=== PATIENT | female | born 1935 | race Caucasian/White ===

== ENCOUNTER 2018-12-03 08:56 | Inpatient (IN) ==
--- NOTE | 2018-12-03 09:09 | EKG Report ---
Test Performed on : 12/03/2018 09:06:29 AM Test Reason : rectal bleed/hx of IA Blood Pressure : / mmHG Vent. Rate : 065 BPM Atrial Rate : 065 BPM P-R Int : 124 ms QRS Dur : 074 ms QT Int : 394 ms P-R-T Axes : 060 030 031 degrees QTc Int : 409 ms Sinus rhythm. with premature atrial complexes. in a pattern of bigeminy. Otherwise normal ECG When compared with ECG of 18-NOV-2018 13:35, premature atrial complexes. are now present Unconfirmed Result
--- NOTE | 2018-12-03 09:35 | PROVIDER DOCUMENTATION ---
HPI-Abdominal Pain/GI Problem - General Chief Complaint: Rectal Bleeding Stated Complaint: RECTAL BLEEDING Time Seen by Provider: 12/03/18 09:16 Source: patient Allergies/Adverse Reactions: Patient Allergies Allergy/AdvReac Type Severity Reaction Status Date / Time meperidine HCl * AdvReac Unknown Verified 12/03/18 10:04 [From [facility]] Home Medications: Home Medication List Medication Instructions Recorded Confirmed Last Taken Type Zolpidem [Ambien] 10 mg PO PRN PRN 11/01/15 12/03/18 12/01/18 History Aspirin 81 mg PO DAILY 11/18/18 12/03/18 12/02/18 History Atorvastatin Calcium 80 mg PO DAILY 11/18/18 12/03/18 12/02/18 History Docusate Sodium [Colace] 100 mg PO BID PRN PRN 11/18/18 12/03/18 12/02/18 History LISINOpril [Prinivil] 5 mg PO DAILY 11/18/18 12/03/18 12/02/18 History Levocetirizine Dihydrochloride 5 mg PO PRN PRN 11/18/18 12/03/18 11/26/18 History Melatonin 10 mg PO PRN PRN 11/18/18 12/03/18 12/02/18 History Omeprazole 40 mg PO DAILY 11/18/18 12/03/18 12/02/18 History Pioglitazone HCl 15 mg PO DAILY 11/18/18 12/03/18 12/02/18 History Polyethylene Glycol 3350 [Miralax] 17 gm PO PRN PRN 11/18/18 12/03/18 12/02/18 History Psyllium Husk [Metamucil] 1 each PO PRN PRN 11/18/18 12/03/18 12/02/18 History Ticagrelor [Brilinta] 90 mg PO BID 11/18/18 12/03/18 12/02/18 History Hydrocodone/APAP 10 mg/325 mg 1 ea PO Q4H PRN PRN #30 tab 11/24/18 12/03/18 Rx [Ollie-10] Carvedilol 6 mg PO BID 12/03/18 12/03/18 12/02/18 History - History of Present Illness-ABD Nature of Presenting Problems: Patient is an 83 yowf who complains of rectal bleeding since last night. Reports 1 episode approximately every hour. States, "I would feel like I had to have a bowel movement, then I would go fill up the toilet with blood." States blood was bright red with clots. Denies abdominal pain, does c/o rectal pain. Recent diagnosis of rectal cancer last week. Had radiation consult yesterday but has not begun treatment yet. Quality of Pain: reports: none Onset/Duration: reports: last night Timing: reports: still present Review of Systems - Adult - REVIEW OF SYSTEMS - ADULT Constitutional: denies: fever Eyes: reports: no symptoms reported Ears, Nose, Mouth & Throat: reports: no symptoms reported Cardiovascular: reports: no symptoms reported Respiratory: reports: no symptoms reported Gastrointestinal: reports: see HPI, rectal bleeding. denies: abdominal pain Genitourinary: reports: no symptoms reported Musculoskeletal: reports: no symptoms reported Integumentary: reports: no symptoms reported Neurological: reports: no symptoms reported Psychiatric: reports: no symptoms reported Endocrine: reports: no symptoms reported Hematologic/Lymphatic: reports: no symptoms reported Allergic/Immunologic: reports: no symptoms reported All Other Systems: Reviewed and Negative Past History - Adult - PAST MEDICAL HISTORY-ADULT Review of Records: reports: Old Records Reviewed, Nursing Assessment Review, Medications Reviewed, Social history reviewed & non-contributory. Major Childhood Illnesses: reports: denies history Cardiovascular: reports: hyperlipidemia Respiratory: reports: denies history Gastrointestinal: reports: denies history Obstetrical/Gynecological: reports: denies history Genitourinary: reports: denies history Musculoskeletal: reports: denies history Neurological: reports: denies history Endocrine/Immune: reports: Diabetes Other Conditions: reports: denies history - PRIOR SURGERIES/PROCEDURES Surgical/Procedure History: reports: cholecystectomy - IMMUNIZATION STATUS Childhood Immunizations: See Nurse Assessment Flu Vaccine: See Nurse Assessment - FAMILY HISTORY Family History: reviewed, not pertinent - SOCIAL HISTORY Smoking: non-smoker Physical Exam-General - PHYSICAL EXAM-ADULT Initial Vital Signs Reviewed: Yes - CONSTITUTIONAL General Appearance: alert, no apparent distress. negative: lethargic, slow to respond - EYES Eyes: PERRL/EOMI, pink conjunctivae. negative: sclera injected, scleral icterus , sunken eyes - HEAD, EARS, NOSE, MOUTH & THROAT HENMT: normocephalic/atraumatic, moist mucous membranes - NECK Neck: full range of motion, supple, normal inspection - RESPIRATORY Respiratory: chest non-tender, lungs clear, normal breath sounds, no pleuratic chest pain, no respiratory distress, no accessory muscle use - CARDIOVASCULAR Cardiovascular: normal peripheral pulses, regular rate, rhythm, no edema, no gallop, no murmur - GASTROINTESTINAL (ABDOMEN) Abdominal Exam: normal bowel sounds, non tender, soft, no organomegaly, no pulsatile mass. negative: distended, guarding, rigid, rebound, tenderness, hernia, mass, hepatomegaly, spleenomegaly - GENITOURINARY Rectal Exam: normal rectal tone, hemorrhoids, mass, tenderness (Rectum extremely tender on exam and could barely tolerate rectal exam. Gross bright red blood noted.) - MUSCULOSKELETAL Back Exam: normal inspection Extremity: normal range of motion, non-tender, normal gait, normal inspection Peripheral Pulses: radial (R): 3+, radial (L): 3+ - SKIN Integumentary: normal color, warm/dry. negative: cyanosis, diaphoresis, jaundice, mottled, pallor - NEUROLOGIC Neurologic: grossly normal, no motor/sensory deficits - PSYCHIATRIC Psych/Mental Status: normal mood/affect, normal thought content, normal thought process, oriented x 3 Progress - PLAN OF CARE/RESULTS Progress/Plan/Lab Results: Vital Signs - 8 hr 12/03/18 09:00 Temperature 97.9 F Pulse Rate 75 Respiratory Rate 18 Blood Pressure 114/98 O2 Sat by Pulse Oximetry 100 Orders Category Date Time Status Saline Loc DIRECTED Care 12/03/18 09:04 Active NPO Diet 12/03/18 09:04 Active AMYLASE [CHEM] Stat Lab 12/03/18 09:04 Uncollected CBC WITH ELECTRONIC DIFF [HEME] Stat Lab 12/03/18 09:04 Uncollected COMPREHENSIVE METABOLIC PANEL [CHEM] Stat Lab 12/03/18 09:04 Uncollected LIPASE [CHEM] Stat Lab 12/03/18 09:04 Uncollected OCCULT BLOOD SCREENING [STOOL] Stat Lab 12/03/18 09:30 Uncollected TYPE & SCREEN [BBK] Stat Lab 12/03/18 09:04 Uncollected URINALYSIS W/POSS RFLX CULT [URINALYSIS] Stat Lab 12/03/18 09:04 Uncollected EKG [EKG] Stat Ther 12/03/18 09:[address] Roberts also saw pt and is in agreement with orders. Attempted to call Dr. Hinds's office and office is closed today. Dr. Roberts recommends calling Dr. Bass since hs is patient's pcp. Dr. Taveras power plant operations manager and paged at [phone]. Dr. Taveras at bedside and will assume patient's care at this time. Result Diagrams: 12/03/18 14:09 12/03/18 09:40 - CONSULTS/PCP/HOSPITALIST Notification #1 *Consult/PCP/Hospitalist*: Dr. Fabian Taveras Time Discussed: 13:00 Consult Disposition: Will see in ED Departure - Departure Date of Disposition Decision: 12/03/18 Time of Disposition Decision: 14:00 DIAGNOSIS: Rectal bleeding Anemia Qualifiers: Anemia type: unspecified type Qualified Code(s): D64.9 - Anemia, unspecified Disposition: ADMITTED INPATIENT 09 Certified Medical Emergency: Emergent Condition: Stable - Critical Care Note This patient required my direct & personal management of CC.: No Attestation - Physician/ BJ Attestation Patient care was provided by Advanced Practice Provider:: Yes Advanced Practice Provider:: Meet Davila Advanced Practice Provider documentation review:: The Mid-level provider documentation, treatment plan and medical decision making was reviewed by the physician who agrees with all treatment and medical decision making by the MLP. The physician spent face to face time with patient:: Yes (Dr. Roberts) Advanced Practice Provider documentation review:: Supervising physician onsite and consulted in the evaluation and care of this patient. The physician did have a face to face encounter with the patient.
[2018-12-03 09:57] LABS: BASO# 0.05 X1000 (0.0-0.2); BASO% 0.7 % (0.0-0.8); EOS# 0.17 X1000 (0.0-0.7); EOS% 2.2 % (0.0-10.0); HEMATOCRIT 37.1 % (37.0-47.0); HEMOGLOBIN 11.9 g/dL (12.0-16.0); LYMPH# 1.86 X1000 (1.2-3.4); LYMPH% 24.5 % (20.5-51.1); MCH 30.7 PG (27-31); MCHC 32.1 g/dL (33-37); MCV 95.9 FL (81-99); MONO# 0.88 X1000 (0.11-0.59); MONO% 11.6 % (1.7-9.3); NEUT# 4.63 X1000 (1.4-6.5); PLT 278 X1000 (130-400); RBC 3.87 XMIL (4.2-5.4); RDW 13.9 % (11.5-14.5); WBC 7.59 X1000 (4.8-10.8)
[2018-12-03 10:24] LABS: ALB/GLOB RATIO 1.2; ALBUMIN 3.8 g/dL (3.5-5.0); CALCIUM 9.3 mg/dL (8.8-10.2); CREATININE 0.9 mg/dL (0.5-0.9); POTASSIUM 3.9 mmol/L (3.5-5.1); TOTAL BILIRUBIN 0.67 mg/dL (0.20-1.00)
[2018-12-03 11:02] LABS: URINE SOURCE CLEAN CATCH
[2018-12-03 11:15] LABS: BILIRUBIN URINE NEGATIVE (NEGATIVE); BLOOD URINE LARGE (NEGATIVE); COLOR BROWN; GLUCOSE URINE NEGATIVE (NEGATIVE); KETONE URINE NEGATIVE (NEGATIVE); LEUKOCYTES URINE LARGE (NEGATIVE); NITRITE URINE NEGATIVE (NEGATIVE); PH URINE 6.5; PROTEIN URINE 100 mg/dL (NEGATIVE); SP GRAVITY URINE 1.003; TURBIDITY URINE TURBID (CLEAR); UR EPITHELIAL CELLS <10 /HPF (<10); URINE BACTERIA NEGATIVE /HPF; URINE RBC TNTC /HPF (<10); URINE WBC TNTC /HPF (<10); UROBILINOGEN URINE NORMAL (NORMAL)
[2018-12-03 11:21] LABS: URINE CASTS NONE SEEN
[2018-12-03] MEDS ORDERED: ROCEPHIN 1 GM in NS 50 ML IV ONE (11:23)
--- NOTE | 2018-12-03 11:30 | ED EKG INTERP ---
This chart was entered by Jolly Ling Scribe, acting as scribe for Kee Roberts MD. EKG Interpretation - EKG Time of EKG reading by physician:: 09:06 EKG Read and Signed by:: Kee Roberts EKG Interpretation (*Must complete 3 of following elements*): Normal Rate: 65 Rhythm: sinus rhythm with pac in a pattern of bigeminy [place]: normal QRS: normal [place] Interval: normal ST Wave: normal Attestation - Physician/ BJ Attestation Patient care was provided by Advanced Practice Provider:: Yes Advanced Practice Provider documentation review:: The Mid-level provider documentation, treatment plan and medical decision making was reviewed by the physician who agrees with all treatment and medical decision making by the MLP. The physician spent face to face time with patient:: No Advanced Practice Provider documentation review:: Supervising physician onsite and consulted in the evaluation and care of this patient. The physician did not have a face to face encounter with the patient. This chart was documented by the indicated scribe, (Jolly Ling Scribe) and accurately reflects the services I performed and decisions made by me, Kee Roberts MD, as attested by the provider's signature.
[2018-12-03] MEDS ORDERED: NS 1,000 ML IV ONE (14:16)
[2018-12-03 14:23] LABS: HEMATOCRIT 32.5 % (37.0-47.0); HEMOGLOBIN 10.4 g/dL (12.0-16.0)
[2018-12-03] MEDS ORDERED: NS 1,000 ML IV SCH (15:47)
[2018-12-03] MEDS ORDERED: SODIUM CHLORIDE 0.9% INJ PRN (15:47)
[2018-12-03] MEDS ORDERED: TYLENOL PO PRN (15:47)
[2018-12-03] MEDS ORDERED: PHENERGAN IV PRN (15:47)
[2018-12-03] MEDS ORDERED: AMBIEN PO PRN (15:47)
[2018-12-03] MEDS ORDERED: NORCO-10 PO PRN (15:47)
[2018-12-03] MEDS ORDERED: MELATONIN PO PRN (15:47)
[2018-12-03] MEDS: LEVAQUIN PO SCH (17:48)
--- NOTE | 2018-12-03 20:15 | Diag Imaging Result Doc PS360 ---
EXAM: CT ABDOMEN/PELVIS W/WO CONTRAS INDICATION: rectal bleeding with squamous cell cancer of rectum TECHNIQUE: This exam was performed using automated exposure control, adjustment of mA or kV according to patient size, and/or use of iterative reconstruction technique. COMPARISON: None. FINDINGS: There is mild focal scarring at the anterior left lung base. There is evidence of prior cholecystectomy. The liver is unremarkable with no sign of metastatic disease. The spleen and pancreas are unremarkable. The right kidney has a lobulated contour and there is milder lobulation of the cortex of the left kidney. This probably represents persistent lobulations versus cortical scarring. There are a few nonobstructing intrarenal stones on the right. There is no hydronephrosis. The urinary bladder is unremarkable. The reproductive tract is unremarkable as imaged. There is irregular ill-defined thickening involving the rectum and anal verge, which would be consistent with the history of carcinoma. There is no evidence of bowel obstruction. There is fairly mild diverticulosis coli. There is an incidental small duodenal diverticulum. The remainder of the GI tract is essentially unremarkable, otherwise. No significant abdominal or pelvic lymphadenopathy is appreciated. There is advanced multilevel degenerative arthropathy throughout the lumbar spine and at both hips. There is nothing that would suggest local bony metastatic disease. IMPRESSION: 1.Ill-defined irregular thickening involving the distal rectum and anal verge that is suspicious for neoplasm given the patient's history. 2.No CT evidence of distant metastatic disease to the abdomen or pelvis. 3.Other incidental/nonacute findings detailed above. Electronically signed by Rivera Rahman 12/03/2018 8:12 PM
--- NOTE | 2018-12-03 20:22 | HISTORY AND PHYSICAL ---
HISTORY OF PRESENT ILLNESS: Mrs. Nohemy Carbone is an 83-year-old, lady, who is followed as an outpatient by Dr. Presley Bass. 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 She presented to the ER with a 36 hour history of rectal bleeding. She had been passing bright red blood and frequent clots per rectum. She has a lot of rectal tenderness and discomfort. Dr. 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 She has been scheduled for a PET scan as an outpatient on Thursday with plans to proceed with radiation therapy as an outpatient. She denies any crampy abdominal pain, nausea, vomiting, or diarrhea. She does have a longstanding history of ischemic heart disease. She had angioplasty and stenting of an unknown vessel on 06/20/2018. She had a drug-eluting stent and has been on Brilinta. She was off Brilinta for 5 days prior to the biopsy, but is back taking Brilinta 90 mg b.i.d. She denies any chest pain, palpitations, or anginal equivalents. She does have a longstanding history of type 2 noninsulin-dependent diabetes mellitus. She has been following a low carbohydrate diet and taking Actos 15 mg daily. She denies any polyuria, polydipsia or episodes of symptomatic hypoglycemia. PAST MEDICAL HISTORY: Essential hypertension, ischemic heart disease. Type 2 noninsulin- dependent diabetes mellitus, well controlled on oral medications. Mixed hyperlipidemia. Squamous cell carcinoma of the rectum. PAST SURGICAL HISTORY: Cholecystectomy. ALLERGIES: Meperidine. FAMILY HISTORY: Noncontributory. SOCIAL HISTORY: She is a former smoker. She does not consume alcoholic beverages. MEDICATIONS: Lisinopril 5 mg daily. Pioglitazone 15 mg daily, atorvastatin 80 mg at bedtime. Omeprazole 40 mg daily, aspirin 81 mg daily. Brilinta at 90 mg b.i.d., Coreg 3.125 mg b.i.d., Ambien 10 mg at bedtime p.r.n. insomnia. MiraLAX 1 scoopful in 8 ounces of water daily, Colace 100 mg b.i.d. REVIEW OF SYSTEMS: General: She denies any recent weight gain or weight loss. HEENT: She wears glasses. CV: No chest pain, palpitations, or anginal equivalents. Pulmonary: No shortness of breath, PND, orthopnea. GI: No reflux, dysphagia, melena, hematochezia, change in bowel habits or rectal bleeding. Endocrine: No polyuria, no polydipsia. No cold or heat intolerance. Skin: No easy bruisability. : No leakage of urine with coughing or laughing. Skin: No easy bruisability. Neuro: No migraines or seizures. Psychiatric: No history of depression. PHYSICAL EXAMINATION: GENERAL: This is a well-developed, well-nourished, 83-year-old, lady in no apparent distress. VITAL SIGNS: She is afebrile. Pulse 61, respirations 15, BP 135/66 lying down, 105/55 standing. HEENT: Fundi with arteriolar wall thickening. Pupils equal, round, reactive to light. Extraocular eye movements intact. TMs without bullae. NECK: Supple. No masses, JVD or bruits. CV: Regular rate and rhythm with a soft systolic ejection murmur at the left sternal margin. LUNGS: Clear. ABDOMEN: Soft, nontender, with active bowel sounds. No hepatosplenomegaly. No abdominal bruits. EXTREMITIES: Without edema. SKIN: No palpable purpura. GENITOURINARY AND RECTAL: Exams deferred. NEUROLOGIC: Nonfocal. ASSESSMENT AND PLAN: 1. Acute blood loss anemia secondary to lower gastrointestinal bleed. The patient does have a known squamous cell carcinoma of the anus. Her hemoglobin and hematocrit have dropped from 12.6 and 39.7 on 11/18/2018 to 10.4 and 32.5 today. We are going to monitor her blood counts every 6 hours and will transfuse as indicated. I am going ahead and check a CT scan of the abdomen and pelvis with and without contrast in order to help stage the tumor. We will transfuse her as indicated. I would like her hematocrit to be consistently greater than 30 in the setting of ischemic heart disease. If we are unable to stop the bleeding, I have spoken to Dr. Perla Barrett, who felt that we could do local radiation. She did state that it would take several treatments to stop the bleeding. We will continue MiraLAX and Colace to soften her bowel movements. 2. Ischemic heart disease. She had drug-eluting stents placed on 06/20/2018. She cannot have any elective procedures until 12/18/2018. Given active bleeding, I believe that it is dangerous for her to continue the Brilinta. I understand that there is a risk for stopping the Brilinta prior to 6 months in the setting of a drug-eluting stent as it may increase the risk for cardiac event. Because of the orthostasis, I will continue the Coreg, but hold the lisinopril. We will begin normal saline at 75 mL/hour and will continue fluids. 3. Type 2 noninsulin-dependent diabetes mellitus. We will place her on pattern sugars, Humulin R sliding scale, and her regular home dosage of Actos. Given her comorbid conditions and clinical presentation, I believe that it is reasonable to admit her to [facility] for volume resuscitation and monitoring of her blood counts. At this point in time, I anticipate that she will be in the hospital for at least 1 midnight and I will therefore place her in outpatient status with observation services. We will continue to hold aspirin, Brilinta, Lovenox or heparin in the face of active bleeding. cc: Brittany Taveras MD
[2018-12-03] MEDS ORDERED: COREG PO SCH (21:00)
[2018-12-03] MEDS: COLACE PO PRN (21:40)
[2018-12-03] MEDS: MIRALAX PO PRN (21:40)
[2018-12-03 23:10] LABS: HEMOGLOBIN 10.8 g/dL (12.0-16.0)
[2018-12-04] MEDS: CORTROSYN IV ONE ×2 (07:40→08:11)
[2018-12-04] MEDS: PRILOSEC PO SCH (07:41)
[2018-12-04] MEDS: LIPITOR PO SCH (08:24)
[2018-12-04] MEDS: ACTOS PO SCH (08:24)
[2018-12-04] MEDS: LEVAQUIN PO SCH (08:24)
[2018-12-04 08:27] LABS: HEMATOCRIT 35.2 % (37.0-47.0); HEMOGLOBIN 11.4 g/dL (12.0-16.0)
--- NOTE | 2018-12-04 08:27 | Diag Imaging Result Doc PS360 ---
EXAM: CHEST-PORTABLE INDICATION: hypertension TECHNIQUE: One view COMPARISON: 03/24/2018 FINDINGS: Mild fibrotic change at the left costophrenic angle is stable. The lungs are grossly clear, otherwise. There is no discrete pleural fluid collection or pneumothorax. The cardiomediastinal silhouette and central vasculature are grossly unremarkable. IMPRESSION: Stable chest. No definite acute pathology. Electronically signed by Rivera Rahman 12/04/2018 8:25 AM
[2018-12-04] MEDS ORDERED: NS 1,000 ML IV ONE (08:52)
--- NOTE | 2018-12-04 12:06 | PROGRESS NOTE ---
DATE: 12/04/2018 SUBJECTIVE: Ms. Nohemy Carbone was recently diagnosed with squamous cell carcinoma of the rectum and anal verge. Staging has not been performed. She had been having persistent rectal bleeding and passing large clots. She was orthostatic on admission. Throughout the night, the bleeding has tapered off. Her blood counts are stable this morning at 11.4 and 35.2. In spite of fluid resuscitation, she is still orthostatic. A Cortrosyn stimulation test is pending. She denies any chest pain, palpitations or anginal equivalents. A CT scan of the abdomen and pelvis with and without contrast demonstrated no intracranial metastases or adenopathy. OBJECTIVE: Vital signs: Temperature is 97.9, pulse 85, respirations 20, blood pressure 134/49 sitting 94/48 standing. Cardiovascular: Regular rate and rhythm. Soft systolic ejection murmur at the left sternal margin. Lungs: Clear. Abdomen: Soft, nontender, with active bowel sounds. ASSESSMENT AND PLAN: 1. Lower gastrointestinal bleed. She does have a squamous cell carcinoma of the rectum and anus. Some bleeding is expected. We will continue to hold the Brilinta and follow blood counts. If the bleeding intensifies or worsens, we will try to initiate local radiation. 2. Orthostatic hypotension. I am going to continue to hold the lisinopril and Coreg. I will bolus her with 1 L of normal saline wide open and increase the fluids to 100 mL per hour. 3. Given her persistent orthostatic hypotension, with her comorbid conditions, I believe that further fluid resuscitation and management of the volume depletion is indicated. I anticipate that she will be in the hospital for at least 2 midnights, and I will therefore place her in inpatient status. I am concerned that she is a high fall risk given her orthostatic hypotension. Because of the active bleeding, we will continue to hold anticoagulation with Brilinta, Lovenox or heparin. cc: Brittany Taveras MD
[2018-12-04] MEDS: NS 1,000 ML IV SCH (12:50)
[2018-12-04 13:30] LABS: HEMATOCRIT 32.1 % (37.0-47.0); HEMOGLOBIN 10.2 g/dL (12.0-16.0)
[2018-12-04 17:00] LABS: HEMATOCRIT 32.6 % (37.0-47.0); HEMOGLOBIN 10.4 g/dL (12.0-16.0)
[2018-12-04] MEDS: MIRALAX PO PRN (21:17)
[2018-12-04] MEDS: COLACE PO PRN (21:17)
[2018-12-05] MEDS: PRILOSEC PO SCH (06:27)
[2018-12-05] MEDS: NS 1,000 ML IV SCH (06:41)
[2018-12-05] MEDS: LIPITOR PO SCH (08:30)
[2018-12-05] MEDS: ACTOS PO SCH (08:30)
[2018-12-05] MEDS: LEVAQUIN PO SCH (08:31)
[2018-12-05 10:28] VITALS: BP 140/42
[2018-12-05] MEDS ORDERED: COLACE PO SCH (21:00)
== END 2018-12-05 12:45 | disposition home or self-care (01) | DRG 812 ==
LOC: ED 08:56 → 4N 08:56
PROVIDERS: ADMIT Internal Medicine; ATTEND Internal Medicine
CPT/HCPCS: 71010; 71045; 74178; 80053; 81001; 82150; 82270; 82533; 82948; 83690; 85014; 85018; 85025; 86850; 86900; 86901; 87077; 87088; 87186; 93005; 99284; A9270; J0696; J0834; J7030; Q9967; XXXXX

== ENCOUNTER 2019-01-03 15:52 | Inpatient (IN) ==
[2019-01-03] MEDS ORDERED: NS 1,000 ML IV ONE (16:29)
[2019-01-03] MEDS ORDERED: SODIUM CHLORIDE 0.9% INJ ONE ×2 (16:29→20:20)
[2019-01-03] MEDS ORDERED: PHENERGAN IV ONE (16:29)
--- NOTE | 2019-01-03 17:12 | Diag Imaging Result Doc PS360 ---
EXAM: CHEST-2 VIEWS HISTORY: weakness TECHNIQUE: Chest two views COMPARISON: 12/04/2018 FINDINGS: The lungs are well expanded. The heart is not enlarged. There is a right jugular portacatheter on the current exam. The tip lies noted the junction of superior vena cava and right atrium. No pneumothorax. The vessels are not distended. There are no infiltrates. No pleural effusions. IMPRESSION: No acute abnormality. Electronically signed by Osman Roberts 01/03/2019 5:10 PM
[2019-01-03 18:31] LABS: EOS# 0.01 X1000 (0.0-0.7); EOS% 0.4 % (0.0-10.0); HEMATOCRIT 26.7 % (37.0-47.0); HEMOGLOBIN 8.7 g/dL (12.0-16.0); LYMPH# 0.13 X1000 (1.2-3.4); MCH 30.3 PG (27-31); MCHC 32.6 g/dL (33-37); MONO# 0.32 X1000 (0.11-0.59); MONO% 12.2 % (1.7-9.3); MPV 12.1 FL (7.4-10.4); NEUT# 2.16 X1000 (1.4-6.5); NEUT% 82.4 % (42.2-75.2); RBC 2.87 XMIL (4.2-5.4); RDW 13.1 % (11.5-14.5); WBC 2.62 X1000 (4.8-10.8)
[2019-01-03 18:33] LABS: PLT 36 X1000 (130-400)
[2019-01-03 18:43] LABS: AGAP 10; ALB/GLOB RATIO 1.2; ALBUMIN 2.8 g/dL (3.5-5.0); ALKALINE PHOSPHATASE 65 U/L (32-104); BUN 39 mg/dL (8-22); CHLORIDE 97 mmol/L (98-107); CK PROFILE 73 U/L (24-173); COSMO 282; CREATININE 0.8 mg/dL (0.5-0.9); ESTIMATED GFR > 60; GLUCOSE 174 mg/dL (70-104); GOT 22 U/L (10-30); GPT 17 U/L (10-36); POTASSIUM 4.5 mmol/L (3.5-5.1); SODIUM 134 mmol/L (136-145); TCO2 27 mmol/L (25-35); TOTAL BILIRUBIN 0.52 mg/dL (0.20-1.00); TOTAL PROTEIN 5.1 g/dL (6.3-8.3)
[2019-01-03 19:12] LABS: BANDS 4 % (0-1); LARGE PLATELETS OCCASIONAL; MONO 8 % (1-9); SEGS 88 % (42-75)
[2019-01-03 19:25] LABS: URINE SOURCE CATH
[2019-01-03 19:40] LABS: BILIRUBIN URINE NEGATIVE (NEGATIVE); BLOOD URINE TRACE (NEGATIVE); COLOR YELLOW; GLUCOSE URINE NEGATIVE (NEGATIVE); KETONE URINE NEGATIVE (NEGATIVE); LEUKOCYTES URINE NEGATIVE (NEGATIVE); NITRITE URINE NEGATIVE (NEGATIVE); PROTEIN URINE 50 mg/dL (NEGATIVE); SP GRAVITY URINE 1.019; TURBIDITY URINE CLEAR (CLEAR); UROBILINOGEN URINE NORMAL (NORMAL)
[2019-01-03 19:41] LABS: UR EPITHELIAL CELLS <10 /HPF (<10); URINE BACTERIA NEGATIVE /HPF; URINE RBC <10 /HPF (<10); URINE WBC <10 /HPF (<10)
[2019-01-03] MEDS ORDERED: IMODIUM PO PRN (20:14)
[2019-01-03] MEDS ORDERED: AMBIEN PO PRN (20:14)
[2019-01-03] MEDS ORDERED: SODIUM CHLORIDE 0.9% INJ PRN (20:15)
[2019-01-03] MEDS ORDERED: ZOFRAN IV PRN (20:15)
[2019-01-03] MEDS ORDERED: PHENERGAN IV PRN (20:15)
[2019-01-03] MEDS ORDERED: PROTONIX IV ONE (20:20)
[2019-01-03] MEDS ORDERED: NS 1,000 ML IV SCH (20:30)
[2019-01-03] MEDS ORDERED: SODIUM CHLORIDE 0.9% INJ SCH (20:30)
[2019-01-03] MEDS ORDERED: COREG PO SCH ×2 (21:00)
[2019-01-03] MEDS: DECADRON PO SCH (21:36)
[2019-01-03] MEDS: NORCO-10 PO PRN (21:45)
[2019-01-03] MEDS: XANAX PO PRN (21:46)
--- NOTE | 2019-01-03 22:10 | HISTORY AND PHYSICAL ---
PRIMARY CARE PROVIDER: Dr. Presley Bass CHIEF COMPLAINT: Nausea, vomiting, and weakness. HISTORY OF PRESENT ILLNESS: Ms. Carbone is an 83-year-old female who is followed outpatient by Dr. Presley Bass. She has a past medical history of ischemic heart disease, hypertension, diabetes mellitus type 2, hyperlipidemia, and squamous cell carcinoma of the rectum, status post chemo and radiation. She was recently admitted to the hospital on 12/03/2018 for rectal bleeding. States that since that time where she was discharged and went home, she has not felt well. She has had intermittent diarrhea, increasing weakness, and says she has noted some blood in her stool intermittently. She complains of pain related to ulcerations in her mouth. She states that her oral intake has been poor related to this. Initial workup showed her to be anemic as well as fluid volume depleted. She will be admitted to the medical floor for further evaluation and treatment. PAST MEDICAL HISTORY: See HPI. PREVIOUS SURGICAL HISTORY: Cholecystectomy and right-sided Port-A-Cath placement. SOCIAL HISTORY: She is a former smoker. Does not drink or use illicit drugs. FAMILY HISTORY: Positive for hypertension and coronary artery disease in first- degree relatives. ALLERGIES: Meperidine and Demerol. HOME MEDICATIONS: 1. Ambien 10 mg p.o. at bedtime p.r.n. 2. [place] 10 p.o. q four hours p.r.n. 3. Carvedilol 3.125 mg p.o. b.i.d. 4. Alprazolam 0.25 mg p.o. p.r.n. 5. Dexamethasone 4 mg p.o. b.i.d. 6. Marinol 5 mg p.o. b.i.d. 7. Loperamide 2 mg p.o. p.r.n. 8. Phenergan 12.5 mg to 25 mg q four hours p.r.n. 9. 250 tablet p.o. b.i.d. REVIEW OF SYSTEMS: Fourteen point review of systems conducted with the patient. Pertinent positives listed above in the HPI. All other systems reviewed and found to be negative. PHYSICAL EXAMINATION: VITAL SIGNS: Temperature 98.3, pulse 67, respirations 19, blood pressure 115/59, oxygen saturation 95% on room air. GENERAL: Anxious 83-year-old female lying on the ER stretcher. Answers all questions appropriately. She is alert and oriented, in no acute distress. HEENT: Head is atraumatic and normocephalic. Pupils equal, round, reactive to light. Extraocular eye movements intact. Sclerae are anicteric. Conjunctivae pale. Oral mucosa with post pharyngeal ulcerations bilaterally. Lips were dry and cracking. Oral mucosa was overall dry. NECK: Supple. No JVD. No thyromegaly. Trachea is midline. No cervical lymphadenopathy. CARDIAC: S1, S2 appreciated. 1 to 2/6 systolic ejection murmur. No gallops, no rubs. LUNGS: Clear to auscultation bilaterally. No rhonchi, wheezes, or rales. Symmetrical rise and fall with respirations. ABDOMEN: Soft, nondistended, nontender. Bowel sounds present all 4 quadrants, normoactive. No pulsatile mass. No organomegaly. EXTREMITIES: No clubbing or cyanosis. Trace of lower extremity edema, no pitting. 2+ pedal pulses bilaterally. NEUROLOGICAL: Alert and oriented. No focal motor deficits, otherwise nonfocal examination. GENITOURINARY: No bladder distention, otherwise deferred. DIAGNOSTIC DATA: Chest x-ray with no infiltrates. No effusions. LABORATORY DATA: WBC 2.62. ASSESSMENT AND PLAN: 1. Rectal cancer, status post chemo and radiation. Aware. I believe her architectural manager is in [place]. Will defer to primary team. Need for Hematology consultation. 2. Pancytopenia. Continue to monitor patient's hemoglobin and hematocrit. She does not appear to be acutely bleeding at this time, however her counts are low. Will type and screen. Also will monitor platelets. At this time defer to primary team need for platelet transfusion or packed red blood cell transfusion. 3. Fluid volume depletion. As noted above. Gentle fluid rehydration overnight. 4. Hypertension. Continue home medication. 5. Diabetes mellitus. Will place on low-dose sliding scale insulin with finger stick blood sugars before meals and at bedtime. Further recommendations per patient clinical course. Dictated by OSORIO Tanner for Raciel Briscoe MD I have performed a face to face diagnostic evaluation. Labs/ Xrays reviewed. Exam chest- clear, skin- poor turgor A/P- Volume depletion. rectal cancer- Admit , IV fluids, supportive care. Dr. Briscoe cc: OSORIO Tanner MD Russell T. Barr, MD [facility]
[2019-01-03] MEDS: HUMALOG SUBQ SCH (23:25)
[2019-01-03] MEDS: MARINOL PO SCH (23:29)
[2019-01-03] MEDS: MYCOSTATIN SUSP PO SCH (23:30)
[2019-01-03] MEDS: NEUTRA-PHOS PO SCH (23:30)
[2019-01-03 23:57] LABS: AGAP 9; BUN 35 mg/dL (8-22); CALCIUM 8.1 mg/dL (8.8-10.2); CHLORIDE 99 mmol/L (98-107); COSMO 279; CREATININE 0.8 mg/dL (0.5-0.9); ESTIMATED GFR > 60; GLUCOSE 142 mg/dL (70-104); MAGNESIUM 2.1 mg/dL (1.5-2.7); POTASSIUM 4.3 mmol/L (3.5-5.1); SODIUM 134 mmol/L (136-145); TCO2 26 mmol/L (25-35)
[2019-01-04 00:01] LABS: EOS# 0.01 X1000 (0.0-0.7); EOS% 0.4 % (0.0-10.0); HEMATOCRIT 26.5 % (37.0-47.0); HEMOGLOBIN 8.7 g/dL (12.0-16.0); LYMPH# 0.13 X1000 (1.2-3.4); LYMPH% 5.5 % (20.5-51.1); MCH 30.7 PG (27-31); MCHC 32.8 g/dL (33-37); MCV 93.6 FL (81-99); MONO# 0.32 X1000 (0.11-0.59); MONO% 13.6 % (1.7-9.3); MPV 11.9 FL (7.4-10.4); NEUT% 80.5 % (42.2-75.2); RBC 2.83 XMIL (4.2-5.4); RDW 13.3 % (11.5-14.5); WBC 2.36 X1000 (4.8-10.8)
[2019-01-04 00:03] LABS: PLT 33 X1000 (130-400)
--- NOTE | 2019-01-04 00:48 | PROVIDER DOCUMENTATION ---
This chart was entered by Ellen Manzo Scribe, acting as scribe for Pee Medina MD. HPI-General Adult - General Chief Complaint: Weakness Stated Complaint: WEAKNESS Time Seen by Provider: 01/03/19 16:13 Source: patient Allergies/Adverse Reactions: Patient Allergies Allergy/AdvReac Type Severity Reaction Status Date / Time meperidine HCl * AdvReac Unknown Verified 12/03/18 10:04 [From Demerol] morphine AdvReac Unknown Verified 01/03/19 16:18 Home Medications: Home Medication List Medication Instructions Recorded Confirmed Last Taken Type Zolpidem [Ambien] 10 mg PO PRN PRN 11/01/15 01/03/19 12/01/18 History Hydrocodone/APAP 10 mg/325 mg 1 ea PO Q4H PRN PRN #30 tab 11/24/18 01/03/19 12/01/18 Rx [[place]-10] Carvedilol 3.125 mg PO BID #60 tab 12/05/18 01/03/19 Unknown Rx Alprazolam 0.25 mg PO PRN PRN 01/03/19 01/03/19 Unknown History Dexamethasone [Decadron] 4 mg PO BID 01/03/19 01/03/19 Unknown History Dronabinol [Marinol] 5 mg PO BID 01/03/19 01/03/19 Unknown History Loperamide [Imodium] 2 mg PO PRN PRN 01/03/19 01/03/19 Unknown History Promethazine [Phenergan] 12.5 - 25 mg TOP Q4H PRN PRN 01/03/19 01/03/19 Unknown History Sod Phos Di, Armstrong/K Phos Armstrong 250 mg PO BID 01/03/19 01/03/19 Unknown History [Phospha 250 Neutral Tablet] - History of Present Illness -Gen Adult Nature of Presenting Problems: 83 yo F presents to ED with weakness, nausea, vomiting diarrhea x1 week was admitted for acute blood loss and GI bleed. Rectal cancer, radiation this week and last week, had chemos 4 days 2 weeks ago. Pt reports it is hard to swallow and eat, due to multiple ulcers in her mouth. Location of Pain/Injury: reports: mouth, generalized Pain Radiation: reports: no radiation Quality of Pain: reports: none Severity: reports: mild Onset/Duration: reports: unsure Review of Systems - Adult - REVIEW OF SYSTEMS - ADULT Constitutional: reports: no symptoms reported. denies: chills, fever, night sweats Eyes: reports: no symptoms reported Ears, Nose, Mouth & Throat: reports: no symptoms reported Cardiovascular: reports: no symptoms reported Respiratory: reports: no symptoms reported Gastrointestinal: reports: diarrhea, difficulty swallowing, nausea, vomiting. denies: abdominal pain, hematemesis, constipation Genitourinary: reports: no symptoms reported Musculoskeletal: reports: see HPI, other (weakness) Integumentary: reports: no symptoms reported Neurological: reports: no symptoms reported Psychiatric: reports: no symptoms reported Endocrine: reports: no symptoms reported Hematologic/Lymphatic: reports: no symptoms reported Allergic/Immunologic: reports: no symptoms reported All Other Systems: Reviewed and Negative Past History - Adult - PAST MEDICAL HISTORY-ADULT Review of Records: reports: Nursing Assessment Review, Medications Reviewed Major Childhood Illnesses: reports: denies history Cardiovascular: reports: hyperlipidemia, [place] Respiratory: reports: denies history Gastrointestinal: reports: denies history Obstetrical/Gynecological: reports: denies history Genitourinary: reports: denies history Musculoskeletal: reports: denies history Neurological: reports: denies history Endocrine/Immune: reports: Diabetes Other Conditions: reports: denies history - PRIOR SURGERIES/PROCEDURES Surgical/Procedure History: reports: cholecystectomy - IMMUNIZATION STATUS Childhood Immunizations: See Nurse Assessment Flu Vaccine: See Nurse Assessment - FAMILY HISTORY Family History: reviewed, not pertinent - SOCIAL HISTORY Smoking: non-smoker Physical Exam-General - PHYSICAL EXAM-ADULT Initial Vital Signs Reviewed: Yes - CONSTITUTIONAL General Appearance: appears well, alert, no apparent distress - EYES Eyes: PERRL/EOMI, pink conjunctivae - HEAD, EARS, NOSE, MOUTH & THROAT HENMT: normocephalic/atraumatic, moist mucous membranes, other (bilateral post pharynx ulcers) - NECK Neck: non-tender, full range of motion, supple - RESPIRATORY Respiratory: chest non-tender, lungs clear, normal breath sounds, no pleuratic chest pain, no respiratory distress, no accessory muscle use - CARDIOVASCULAR Cardiovascular: normal peripheral pulses, regular rate, rhythm, no edema, no gallop, no JVD, no murmur - GASTROINTESTINAL (ABDOMEN) Abdominal Exam: normal bowel sounds, non tender, soft - LYMPHATIC Lymphatic: no adenopathy - MUSCULOSKELETAL Back Exam: normal inspection, no CVA tenderness, no vertebral tenderness Extremity: normal range of motion, non-tender, normal gait, normal inspection - SKIN Integumentary: normal color, normal turgor, warm/dry - NEUROLOGIC Neurologic: grossly normal - PSYCHIATRIC Psych/Mental Status: normal mood/affect, normal thought content, normal thought process, oriented x 3 Progress - PLAN OF CARE/RESULTS Progress/Plan/Lab Results: Vital Signs - 8 hr 01/03/19 16:10 Temperature 98.3 F Pulse Rate 83 Respiratory Rate 20 Blood Pressure 124/48 O2 Sat by Pulse Oximetry 94 L Laboratory Results - last 24 hr 01/03/19 16:21 POC Glucose 199 H Orders Category Date Time Status Saline Loc NOW Care 01/03/19 16:28 Active CHEST-2 VIEWS [RAD] Stat Exams 01/03/19 16:29 Ordered CBC WITH ELECTRONIC DIFF [HEME] Stat Lab 01/03/19 16:28 Uncollected CK PROFILE [SP CHEM] Stat Lab 01/03/19 16:29 Uncollected COMPREHENSIVE METABOLIC PANEL [CHEM] Stat Lab 01/03/19 16:29 Uncollected TROPONIN T Stat Lab 01/03/19 16:29 Uncollected URINALYSIS W/POSS RFLX CULT [URINALYSIS] Stat Lab 01/03/19 16:29 Uncollected 0.9% Sodium Chloride Inj [Ns] 1,000 ml Med 01/03/19 16:29 Active IV 999 mls/hr Promethazine [Phenergan] Med 01/03/19 16:29 Discontinued 12.5 mg IV NOW ONE Sodium Chloride 0.9% Med 01/03/19 16:29 Discontinued 10 ml INJ NOW ONE EKG [EKG] Stat Ther 01/03/19 16:29 Ordered A/P: Generalized weakness. Intractable nasuea and vomiting. S/P chemo and rad for SCC of rectum. will admit. Result Diagrams: 01/03/19 17:54 01/03/19 17:54 - EKG 1 Time of EKG reading by physician:: 16:35 EKG Read and Signed by:: Pee Medina EKG Interpretation (*Must complete 3 of following elements*): Abnormal Rate: 68 Rhythm: sinus [place]: normal QRS: PVC's NM Interval: normal ST Wave: normal - CONSULTS/PCP/HOSPITALIST Notification #1 *Consult/PCP/Hospitalist*: Dr Briscoe Time Discussed: 19:31 Consult Disposition: Admit Departure - Departure Date of Disposition Decision: 01/03/19 Time of Disposition Decision: 19:31 DIAGNOSIS: Generalized weakness, Intractable nausea and vomiting Disposition: ADMITTED INPATIENT 09 Certified Medical Emergency: Emergent Condition: Stable Additional Freetext Instructions: We have examined and treated you today on an emergency basis only. This was not a substitute for, or an effort to provide, complete medical care. In most cases, you must let your doctor check you again. Tell your doctor about any new or lasting problems. We cannot recognize and treat all injuries or illnesses in one Emergency Department visit. If you had sp ecial tests, such as X-rays or CT scans, will be reviewed by radiologist and will call you if there are any new suggestions Follow up with primary care provider in 1 to 2 days if no improvement. If you do not have a primary care provider, you need to choose one as soon as possible. Take medicines as prescribed. Monitor for any side effects or adverse events from medications. If any side effect, adverse event or rash develops, or if you suspect any other adverse reaction to the medication, then discontinue the medication immediately and contact clinic /PCP or go to the nearest ER. Narcotic meds / sedative meds instruction - patent advised not to drive, operate any machinery or go into water after taking meds as it may impair mental ability to react to the situation in an appropriate manner. Continue other current medicines. Follow up with PCP within 24-48 hours, or sooner if symptoms worsen or fail to improve. Patient / guardian verbalizes understanding of treatment plan, medication, and side effects and agrees with treatment plan. Patient leaves ER in stable condition and ambulatory state. Return to ER as needed. Discharge instructions reviewed verbally and given to patient in written form. Follow up with primary care provider. Referrals and Follow-Ups: Presley Bass MD [Primary Care Provider] - - Critical Care Note This patient required my direct & personal management of CC.: No Attestation - Physician/ BJ Attestation Patient care was provided by Advanced Practice Provider:: No The physician spent face to face time with patient:: Yes Advanced Practice Provider documentation review:: Supervising physician onsite and consulted in the evaluation and care of this patient. The physician did have a face to face encounter with the patient. This chart was documented by the indicated scribe, (Ellen Manzo Scribe) and accurately reflects the services I performed and decisions made by me, Pee Medina MD, as attested by the provider's signature.
[2019-01-04] MEDS: HUMALOG SUBQ SCH (06:15)
--- NOTE | 2019-01-04 07:40 | EKG Report ---
Test Performed on : 01/03/2019 4:35:00 PM Test Reason : weakness, Hx of [place] Blood Pressure : / mmHG Vent. Rate : 068 BPM Atrial Rate : 068 BPM P-R Int : 114 ms QRS Dur : 072 ms QT Int : 404 ms P-R-T Axes : 026 028 015 degrees QTc Int : 429 ms Sinus rhythm. with premature supraventricular complexes. Cannot rule out Anterior infarct , age undetermined Abnormal ECG When compared with ECG of 03-DEC-2018 09:06, (Unconfirmed) No significant change was found Unconfirmed Result
[2019-01-04] MEDS ORDERED: PROTONIX IV SCH (09:00)
[2019-01-04] MEDS: NEUTRA-PHOS PO SCH ×2 (09:49→20:05)
[2019-01-04] MEDS: XANAX PO PRN (09:49)
[2019-01-04] MEDS: MARINOL PO SCH ×2 (09:49→20:05)
[2019-01-04] MEDS: DECADRON PO SCH ×2 (09:49→20:05)
[2019-01-04] MEDS: NORCO-10 PO PRN ×3 (09:49→20:06)
[2019-01-04] MEDS: MYCOSTATIN SUSP PO SCH ×4 (09:50→20:05)
--- NOTE | 2019-01-04 17:12 | HEMO/ONC CONSULTATION ---
DATE: 01/04/2019 ADMITTING PHYSICIAN: Dr. Raciel Briscoe. REQUESTING PHYSICIANS: Dr. Raciel Briscoe. We appreciate this consult. 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 HISTORY OF PRESENT ILLNESS: Ms. Carbone is an 83-year-old female, well known to Dr. Dominguez with a history of anal moderately differentiated squamous cell carcinoma. The patient is currently on 5-FU and mitomycin C with concomitant radiation. The patient has recently had poor oral intake secondary to mucositis and presented to [facility] with intermittent diarrhea, increasing weakness, and intermittent bloody stool. We are consulted as the patient is well known to us. PAST MEDICAL HISTORY: 1. Anal moderately differentiated squamous cell carcinoma. 2. Ischemic heart disease. 3. Hypertension. 4. Diabetes mellitus type 2. 5. Hyperlipidemia. PAST SURGICAL HISTORY: 1. Cholecystectomy. 2. Right Port-A-Cath placement. SOCIAL HISTORY: The patient has a history of smoking cigarettes. She has since quit. She does not use alcohol or illicit drugs. FAMILY HISTORY: Negative for any hematologic or oncologic problems. MEDICATION ON ADMISSION: 1. Ambien. 2. [place]. 3. Carvedilol. 4. Alprazolam. 5. Dexamethasone. 6. Marinol. 7. Loperamide. 8. Phenergan. ALLERGIES: Meperidine. REVIEW OF SYSTEMS: A 14 point review of systems was obtained and is negative except for as mentioned in HPI. PHYSICAL EXAMINATION: General: Ms. Carbone is a pleasant, 83-year-old female lying supine in bed, in no immediate distress. Vital Signs: Temperature 98.0 degrees, blood pressure 152/53, heart rate 64, respirations 18, O2 saturation 99% on room air. HEENT: Normocephalic, atraumatic. Mucous membranes are pale and slightly dry with excoriation to tongue and oral mucosa. Sclerae are anicteric. Extraocular movements intact. Neck: Supple. Lungs: Clear to auscultation bilaterally. Chest expansion is equal bilaterally. CV: S1, S2 is heard. No murmurs, rubs or gallops. Abdomen: Nondistended. Extremities: No clubbing or cyanosis. The patient does have trace bilateral lower extremity edema. Dermatologic: No rashes, bruises, or lesions. Neurologic: The patient is awake, alert, and oriented x3 and has no focal deficit. LABORATORY DATA: Hemoglobin 8.7, hematocrit 26.5, white blood cell count is 2.36, platelets 33,000. Sodium 134, potassium 4.3, chloride 99, CO2 is 26, BUN 35, creatinine is 0.8, glucose 142, calcium is 8.1, magnesium is 2.1. TSH is 0.31. IMAGING STUDIES: Chest x-ray reveals no acute abnormality. ASSESSMENT AND PLAN: 1. 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 The patient is currently status post cycle 1, dose 4 of 5-FU and mitomycin C on 12/23/2018 with concomitant radiation. We are currently holding treatment until the patient's acute illness improves. 2. Pancytopenia. Stable at this time. Would continue to monitor CBC. Would transfuse packed red blood cells if hemoglobin is less than 8.0. Would transfuse platelets if platelet count is less than 20,000 or in the setting of active bleeding. 3. Fluid depletion. The patient remains on IV fluids at this time. 4. Hypertension. Stable at this time on antihypertensive. 5. Diabetes mellitus type 2. Blood glucose is stable at 142. Would continue to monitor. 6. Malnutrition. Would recommend mechanical soft diet at this time with Ensure in between meals. 7. Mucositis. Continue current regimen. Would add MuGard from home. 8. We will follow along with you and make further recommendations pending outcomes. The above reflects the history, exam, assessment, and plan of Dr. Dominguez. Dictated by OSORIO Javier for Albert Dominguez MD cc: OSORIO Javier MD Russell T. Barr, MD
[2019-01-04] MEDS ORDERED: CALMOSEPTINE OINTMENT TOP PRN (18:38)
[2019-01-04] MEDS: AMBIEN PO PRN (20:06)
[2019-01-05 07:52] LABS: HEMATOCRIT 27.7 % (37.0-47.0); HEMOGLOBIN 8.9 g/dL (12.0-16.0); IMM GRAN# 0.03 X1000 (0.0-0.04); LYMPH# 0.21 X1000 (1.2-3.4); LYMPH% 6.9 % (20.5-51.1); MCH 30.5 PG (27-31); MCHC 32.1 g/dL (33-37); MCV 94.9 FL (81-99); MONO# 0.32 X1000 (0.11-0.59); MONO% 10.6 % (1.7-9.3); MPV 12.6 FL (7.4-10.4); NEUT# 2.47 X1000 (1.4-6.5); NEUT% 81.5 % (42.2-75.2); RBC 2.92 XMIL (4.2-5.4); RDW 13.5 % (11.5-14.5); WBC 3.03 X1000 (4.8-10.8)
[2019-01-05 07:55] LABS: PLT 39 X1000 (130-400)
[2019-01-05 07:59] LABS: AGAP 5; ALBUMIN 2.7 g/dL (3.5-5.0); BUN 22 mg/dL (8-22); CALCIUM 8.4 mg/dL (8.8-10.2); CHLORIDE 105 mmol/L (98-107); COSMO 287; CREATININE 0.6 mg/dL (0.5-0.9); ESTIMATED GFR > 60; GLUCOSE 183 mg/dL (70-104); PHOSPHORUS 1.7 mg/dL (2.7-4.5); POTASSIUM 5.1 mmol/L (3.5-5.1); SODIUM 140 mmol/L (136-145); TCO2 30 mmol/L (25-35)
[2019-01-05] MEDS ORDERED: ZOFRAN ODT PO PRN (08:06)
[2019-01-05] MEDS: MARINOL PO SCH ×2 (08:31→20:59)
[2019-01-05] MEDS: DECADRON PO SCH ×2 (08:31→20:59)
[2019-01-05] MEDS: MYCOSTATIN SUSP PO SCH ×4 (08:31→21:00)
[2019-01-05] MEDS: NEUTRA-PHOS PO SCH ×2 (08:31→20:59)
[2019-01-05 09:02] LABS: BANDS 4 % (0-1); LYMPHS 4 % (21-51); MONO 18 % (1-9); SEGS 72 % (42-75)
[2019-01-05 09:03] LABS: HYPOCHROM 1+
[2019-01-05] MEDS: LEVEMIR SUBQ SCH (11:02)
[2019-01-05] MEDS: NORCO-10 PO PRN ×2 (13:58→20:59)
[2019-01-05] MEDS: AMBIEN PO PRN (20:59)
[2019-01-05] MEDS: MBX SOLUTION MT PRN (21:00)
[2019-01-06] MEDS ORDERED: INSULIN PEN NEEDLES ONE (06:11)
[2019-01-06] MEDS: NORCO-10 PO PRN ×4 (08:41→22:35)
[2019-01-06] MEDS: MYCOSTATIN SUSP PO SCH ×2 (08:42→13:17)
[2019-01-06] MEDS: MARINOL PO SCH ×2 (08:42→20:25)
[2019-01-06] MEDS: DECADRON PO SCH ×2 (08:43→20:25)
[2019-01-06] MEDS: NEUTRA-PHOS PO SCH ×2 (08:43→20:25)
[2019-01-06] MEDS: LEVEMIR SUBQ SCH (08:45)
[2019-01-06] MEDS: MBX SOLUTION MT PRN ×3 (14:32→20:31)
[2019-01-06] MEDS ORDERED: DIFLUCAN PO ONE (17:06)
[2019-01-06] MEDS: XYLOCAINE 2% JELLY TOP SCH (20:32)
[2019-01-06] MEDS: AMBIEN PO PRN (22:39)
[2019-01-07] MEDS: NORCO-10 PO PRN ×3 (08:31→21:03)
[2019-01-07] MEDS: MBX SOLUTION MT PRN ×4 (08:32→23:46)
[2019-01-07] MEDS ORDERED: LEVEMIR SUBQ SCH (09:00)
[2019-01-07 09:20] LABS: HEMATOCRIT 34.9 % (37.0-47.0); HEMOGLOBIN 11.5 g/dL (12.0-16.0); IMM GRAN# 0.08 X1000 (0.0-0.04); IMM GRAN% 2.2 % (0.0-0.5); LYMPH# 0.36 X1000 (1.2-3.4); LYMPH% 9.9 % (20.5-51.1); MCH 30.9 PG (27-31); MCV 93.8 FL (81-99); MPV 11.7 FL (7.4-10.4); NEUT# 2.78 X1000 (1.4-6.5); NEUT% 76.9 % (42.2-75.2); PLT 69 X1000 (130-400); RBC 3.72 XMIL (4.2-5.4); RDW 13.9 % (11.5-14.5); WBC 3.62 X1000 (4.8-10.8)
[2019-01-07] MEDS: NEUTRA-PHOS PO SCH ×2 (09:31→21:05)
[2019-01-07] MEDS: MARINOL PO SCH ×2 (09:32→22:02)
[2019-01-07] MEDS: DECADRON PO SCH ×2 (09:32→21:03)
[2019-01-07] MEDS: DIFLUCAN PO SCH (09:32)
[2019-01-07 09:42] LABS: AGAP 10; ALBUMIN 2.9 g/dL (3.5-5.0); BUN 18 mg/dL (8-22); CALCIUM 8.7 mg/dL (8.8-10.2); CHLORIDE 100 mmol/L (98-107); COSMO 280; CREATININE 0.7 mg/dL (0.5-0.9); ESTIMATED GFR > 60; GLUCOSE 175 mg/dL (70-104); PHOSPHORUS 2.3 mg/dL (2.7-4.5); POTASSIUM 4.6 mmol/L (3.5-5.1); SODIUM 137 mmol/L (136-145); TCO2 27 mmol/L (25-35)
[2019-01-07] MEDS: XYLOCAINE 2% JELLY TOP SCH ×3 (13:38→21:47)
[2019-01-07] MEDS: AMBIEN PO PRN (22:03)
[2019-01-07] MEDS: XANAX PO PRN (23:46)
[2019-01-08] MEDS: NORCO-10 PO PRN ×4 (01:21→21:29)
[2019-01-08] MEDS ORDERED: INSULIN PEN NEEDLES ONE (07:20)
[2019-01-08] MEDS: DECADRON PO SCH ×2 (09:08→21:29)
[2019-01-08] MEDS: DIFLUCAN PO SCH (09:08)
[2019-01-08] MEDS: XYLOCAINE 2% JELLY TOP SCH ×3 (09:09→17:34)
[2019-01-08] MEDS: NEUTRA-PHOS PO SCH ×2 (09:09→21:32)
[2019-01-08] MEDS: MARINOL PO SCH ×2 (09:09→21:29)
[2019-01-08] MEDS: LEVEMIR SUBQ SCH (09:09)
[2019-01-08] MEDS: MBX SOLUTION MT PRN ×3 (09:15→21:34)
--- NOTE | 2019-01-08 12:42 | GENERAL SURGERY CONSULTATION ---
DATE: 01/08/2019 REQUESTING PHYSICIAN: Dr. Bass. REASON FOR CONSULTATION: Possible flipped port. HISTORY OF PRESENT ILLNESS: An 84-year-old female who is followed by Dr. Bass, who initially came in with nausea, vomiting. She had a recent port placed. She has been getting chemotherapy for squamous cell carcinoma of the rectum. My partner placed the port within the last month. There was some concern yesterday from the nursing staff, who thought the port might have flipped subcutaneously. They were unable to access it. I was asked to weigh an opinion. Patient is without any complaints. PAST MEDICAL HISTORY: Ischemic heart disease, hypertension, diabetes mellitus type 2, hyperlipidemia, squamous cell carcinoma of the rectum, status post chemo-radiation. PAST SURGICAL HISTORY: Cholecystectomy, right-sided port placement. SOCIAL HISTORY: Former smoker. FAMILY HISTORY: Positive for hypertension, coronary artery disease. ALLERGIES: Meperidine and Demerol. HOME MEDICATIONS: Reviewed. REVIEW OF SYSTEMS: A full 10 point review of systems obtained and negative, unless otherwise as specified in HPI. PHYSICAL EXAMINATION: Vital Signs: Patient is currently afebrile. Vital signs stable. General exam: No acute distress. HEENT: Normocephalic, atraumatic. Pupils equal, round, reactive to light. Mucous membranes moist. Oropharynx benign. Neck: Supple. Trachea midline. Cardiovascular: Regular rate and rhythm. Lungs: Grossly clear. Chest wall with port in place; I cannot feel the access part of the port. Abdomen: Soft, nontender, nondistended. Extremities: Moves all extremities. Neurologic: Grossly intact. Skin: No signs of jaundice. Vascular: All extremities perfused. LABORATORY: None this morning as of yet. ASSESSMENT AND PLAN: An 84-year-old female with possible flipped port. 1. Possible flipped port. At this time, performed an ultrasound at the bedside of the area. I could see what looked like the access knobs for palpation. It looks like it is oriented in the right away. What we will likely need to do is have the nurses try to re-access it. If that is unsuccessful, need to send her down to [facility] on Thursday to see if they can access, to see if there are any kind of occlusions. I appreciate the consult. cc: MD Presley Zepeda MD
[2019-01-08] MEDS: AMBIEN PO PRN (21:31)
[2019-01-09] MEDS: NORCO-10 PO PRN ×5 (00:46→21:38)
[2019-01-09] MEDS: MBX SOLUTION MT PRN ×2 (00:47→21:39)
--- NOTE | 2019-01-09 07:36 | GENERAL SURGERY PROGRESS NOTE ---
DATE: 01/09/2019 Nurses were unable to aspirate blood. We were able to flush in the area. Given this, we will plan on examining the spot under fluoroscopy tomorrow and have radiology see if they can flush it. If it does not seem to work, we will need to have it revised. cc: MD Presley Zepeda MD
[2019-01-09] MEDS: XYLOCAINE 2% JELLY TOP SCH ×3 (09:53→17:42)
[2019-01-09] MEDS: MARINOL PO SCH ×2 (09:54→21:38)
[2019-01-09] MEDS: LEVEMIR SUBQ SCH (09:54)
[2019-01-09] MEDS: DECADRON PO SCH ×2 (09:54→21:38)
[2019-01-09] MEDS: DIFLUCAN PO SCH (09:55)
[2019-01-09] MEDS: NEUTRA-PHOS PO SCH ×2 (09:55→21:39)
--- NOTE | 2019-01-09 12:04 | PROGRESS NOTE ---
DATE: 01/09/2019 SUBJECTIVE: The patient's chart was reviewed. In summary, patient was admitted on 01/03/2019 with intractable nausea, vomiting, and weakness. Full evaluation revealed pancytopenia in the setting of radiation and chemotherapy for rectal cancer and volume depletion. The patient was treated with IV fluids. Oncology was consulted and support was provided. While hospitalized, overall, patient's condition has improved, although not back to baseline. She continues to have considerable weakness. She continues to have difficulty with p.o. intake secondary to mouth and esophageal pain with associated ulcerations. Additionally, patient was found to have a dysfunctional port. This is currently being assessed. She denies fevers, chills, shortness of breath, or chest discomfort. OBJECTIVE: T-max 98.7 degrees, heart rate 66-77, respirations 16-18, blood pressure 137 to 152 over 53 to 72.General: Chronically ill-appearing, no acute distress. Cardiovascular: Regular rate and rhythm with frequent ectopy and no significant murmurs, rubs, or gallops. Pulmonary: Clear to auscultation anteriorly. Abdomen: Soft, nontender, nondistended. Positive bowel sounds. Extremities: Moves all extremities well. No significant clubbing or cyanosis. Patient has 2+ lower extremity edema on the right and trace on the left. Dermatologic: Evaluation reveals no evidence of rash. LABORATORY DATA: None. ASSESSMENT AND PLAN: 1. Rectal cancer. Patient currently is being treated with radiation and chemotherapy. I appreciate Dr. Dominguez's consultation. We will defer further management to his discretion. 2. Pancytopenia. As of last laboratory evaluation, patient demonstrated improvement. This likely was chemotherapy associated. We will continue to follow serial CBCs. 3. Profound weakness. This likely is a consequence of her current treatment. We will continue physical therapy. Placement for rehabilitation is being considered. 4. Dysfunctional port. Dr. Blackwell has been consulted. Ultrasound is scheduled for tomorrow. We will defer further management to his discretion. 5. Asymmetric lower extremity edema. In the setting of rectal cancer, I do feel further evaluation is warranted. We will check a lower extremity venous Doppler. DISPOSITION: At this point, patient continues to require usp care in a hospital setting. We will plan discharge home once appropriate. cc: MD Presley Bhandari MD
[2019-01-09] MEDS: AMBIEN PO PRN (21:38)
[2019-01-10] MEDS: MBX SOLUTION MT PRN ×2 (01:02→08:37)
[2019-01-10] MEDS: NORCO-10 PO PRN ×4 (01:02→12:43)
[2019-01-10] MEDS: DIFLUCAN PO SCH (08:36)
[2019-01-10] MEDS: MARINOL PO SCH (08:36)
[2019-01-10] MEDS: LEVEMIR SUBQ SCH (08:37)
[2019-01-10] MEDS: DECADRON PO SCH (08:39)
[2019-01-10] MEDS: XYLOCAINE 2% JELLY TOP SCH ×2 (08:39→13:12)
[2019-01-10] MEDS: NEUTRA-PHOS PO SCH (08:39)
--- NOTE | 2019-01-10 09:34 | GENERAL SURGERY PROGRESS NOTE ---
DATE: 01/10/2019 SUBJECTIVE: The patient is scheduled to have the port examined under fluoroscopy in the Radiology Department. Hopefully, it is patent. If not needed, consider possible revision and replacement. This was all discussed with the patient. cc: MD Presley Zepeda MD
[2019-01-10 09:59] LABS: BASO# 0.01 X1000 (0.0-0.2); BASO% 0.2 % (0.0-0.8); HEMATOCRIT 37.3 % (37.0-47.0); HEMOGLOBIN 12.2 g/dL (12.0-16.0); IMM GRAN# 0.04 X1000 (0.0-0.04); IMM GRAN% 0.9 % (0.0-0.5); LYMPH# 0.24 X1000 (1.2-3.4); LYMPH% 5.4 % (20.5-51.1); MCHC 32.7 g/dL (33-37); MCV 97.9 FL (81-99); MONO# 0.48 X1000 (0.11-0.59); MONO% 10.7 % (1.7-9.3); MPV 11.4 FL (7.4-10.4); NEUT# 3.71 X1000 (1.4-6.5); NEUT% 82.8 % (42.2-75.2); PLT 125 X1000 (130-400); RBC 3.81 XMIL (4.2-5.4); RDW 14.9 % (11.5-14.5); WBC 4.48 X1000 (4.8-10.8)
[2019-01-10 10:32] LABS: AGAP 8; ALB/GLOB RATIO 1.1; ALBUMIN 3.1 g/dL (3.5-5.0); ALKALINE PHOSPHATASE 77 U/L (32-104); BUN 15 mg/dL (8-22); CALCIUM 8.7 mg/dL (8.8-10.2); CHLORIDE 96 mmol/L (98-107); COSMO 266; CREATININE 0.7 mg/dL (0.5-0.9); ESTIMATED GFR > 60; GLUCOSE 113 mg/dL (70-104); GOT 18 U/L (10-30); GPT 20 U/L (10-36); POTASSIUM 4.2 mmol/L (3.5-5.1); SODIUM 132 mmol/L (136-145); TCO2 28 mmol/L (25-35); TOTAL BILIRUBIN 0.53 mg/dL (0.20-1.00); TOTAL PROTEIN 5.8 g/dL (6.3-8.3)
[2019-01-10 12:01] VITALS: BP 158/65
[2019-01-10] MEDS ORDERED: INSULIN PEN NEEDLES ONE (12:50)
--- NOTE | 2019-01-10 15:43 | Diag Imaging Result Doc PS360 ---
EXAM: PORTAGRAM 01/10/2019 HISTORY: No blood return when port accessed TECHNIQUE: Port injection with rapid sequence filming. 23 images, six mGy, seven seconds fluoroscopy time. COMMENT: Contrast was injected in the previously accessed port. This opacifies the port and catheter with contrast seen entering the right atrium. IMPRESSION: No evidence of occlusion or extravasation. Electronically signed by Michael Arellano 01/10/2019 3:40 PM
--- NOTE | 2019-01-10 22:50 | DISCHARGE SUMMARY ---
ADMISSION DATE: 01/03/2019 DISCHARGE DATE: 01/10/2019 FINAL DIAGNOSES: 1. Generalized weakness and inability to walk. 2. Dehydration. 3. Mucositis of the pharynx and rectal areas secondary to chemotherapy. 4. Pancytopenia secondary to recent chemotherapy. 5. Persistent nausea and vomiting with anorexia. 6. Abnormal glucose tolerance, exacerbated by dexamethasone into drug-induced type 2 diabetes mellitus. 7. Squamous cell carcinoma of the rectum. PRESENT ILLNESS: Ms. Carbone is an 84-year-old woman with a past medical history of ischemic heart disease, hypertension, impaired fasting glucose, hyperlipidemia, and squamous cell carcinoma of the rectum. She had her first chemotherapy treatment approximately 10 days prior to admission with 5-FU and mitomycin C. She has developed significant pain with swallowing felt due to mucositis, and also pain in the rectal area. She has received approximately 10 radiation therapy treatments to the rectum as well. Dr. Dominguez, her oncologist, has assured her that she has a good chance of cure following appropriate therapy. She has had diarrhea with occasional rectal bleeding, which worsened immediately prior to this admission. Her oral intake has been very poor due to pain with swallowing. On the day of admission, she had walked to the bathroom and sat on the commode but was unable to get up and had to call for help. She lives alone. PHYSICAL EXAMINATION: Vital signs were unremarkable. General Appearance: Anxious, elderly female. Alert and oriented. HEENT: No evidence of trauma. Pupils equally reactive to light. Lips were dry and cracking with oral mucosa parched. Neck: Supple with no JVD or adenopathy. Cardiac: Exam was unremarkable. Lungs were clear bilaterally. Abdomen was soft and nontender with no organomegaly. Neurologic: She was alert and oriented. Exam was nonfocal. DATA BASE: Chest x-ray shows no infiltrates. Laboratory: White blood cell count 2600, hemoglobin 8.7, hematocrit 26.7, platelet count 36,000. Chemistry profile: Sodium 134, BUN 39, creatinine 0.8, glucose 174, albumin 2.8. Urinalysis was unremarkable. HOSPITAL COURSE: She has been treated with intravenous fluids for rehydration as well as symptomatic medicines for her mucositis. She was given MBX solution (Magic Mouthwash) 4 times a day along with continuing on her Diflucan. Her dexamethasone caused significant hyperglycemia and required some insulin coverage, which she will continue at home. I reduced the dose to 2 mg twice a day. She has continued on Marinol and loperamide as needed. I do not think she needs any further Nutrophos, carvedilol or Phenergan. With rehydration, her BUN dropped to 15 and creatinine to 0.7. Her albumin improved to 3.1. Her white blood count was nearly up to normal, 4500 at discharge, with a hemoglobin of 12.2, hematocrit of 37.3% and platelet count of 125,000. Her mucositis appeared significantly improved and her swallowing improved as well. She is scheduled for at least 1 additional chemotherapy round on January 17, 2019 and I discussed with her and her daughter the probability that she will again have similar side effects with the second round and that we should be prepared with assisted living facility support and symptomatic medications. She is scheduled to complete her course of radiation therapy before the end of the month and she did attend several sessions while here in the hospital. At the time of discharge, she is swallowing better and maintaining her hydration with oral intake and tolerating a very soft diet well. She is discharged to [facility] assisted living facility. DISCHARGE MEDICATIONS: 1. Fluconazole 100 mg daily. 2. MBX solution 15 mL four times a day as needed. 3. Lidocaine 2% gel topically to the rectal area 3 times a day as needed for pain. 4. Dexamethasone 2 mg twice a day. 5. Levemir 14 units subcutaneously q.a.m. 6. Hydrocodone/APAP 10/325 mg, one q.4h p.r.n. pain. 7. Marinol 5 mg twice a day for appetite. 8. Ambien 10 mg daily at bedtime as needed. 9. Alprazolam 0.25 mg b.i.d. as needed. 10.Loperamide 2 mg every 4 hours as needed for diarrhea. FOLLOWUP: She is to return to my office in 8 to 14 days for transition of care visit. cc: MD Albert Briceño MD
--- NOTE | 2019-01-11 09:33 | Extremity Venous Study ---
PROCEDURE NAME: Venous U/S Right Leg - 01/09/2019 REQUESTING PHYSICIAN: Dr. Moore. EXCAVATOR OPERATOR: Gudelia. INDICATIONS: Swelling. EQUIPMENT: [employer] Vivid E9 ultrasound system with a 9 L-D transducer. TECHNIQUE: Images of the right lower extremity venous system with a comparison shot to the left common femoral vein were obtained in both sagittal and transverse planes. Doppler was used to evaluate veins for spontaneity, phasicity, respiratory excursion, and digital augmentation. RESULTS: Normal venous compression. Normal venous flow. No obvious superficial or deep venous thrombosis noted. cc: MD Adrian Zepeda MD Russell T. Barr, MD
== END 2019-01-10 15:15 | disposition home health service (06) | DRG 640 ==
LOC: SUPCPDRO → ED 15:52 → 3N 15:53 → SUATTDRO 15:53
PROVIDERS: ADMIT Internal Medicine; ATTEND Internal Medicine
CPT/HCPCS: 36598; 51701; 71020; 71046; 80048; 80053; 80069; 81001; 82550; 82948; 83735; 84443; 84484; 85025; 86850; 86900; 86901; 93005; 93971; 97162; 97530; 99285; A9270; C9113; J2550; J7030; J8540; P9612; Q9966; Q9967; S0164; XXXXX

== ENCOUNTER 2019-09-30 00:39 | Inpatient (IN) ==
--- NOTE | 2019-09-21 17:49 | EKG Report ---
Test Performed on : 09/21/2019 5:38:33 PM Test Reason : PAT Blood Pressure : / mmHG Vent. Rate : 071 BPM Atrial Rate : 071 BPM P-R Int : 128 ms QRS Dur : 074 ms QT Int : 368 ms P-R-T Axes : 074 086 052 degrees QTc Int : 399 ms Sinus rhythm. with premature atrial complexes. in a pattern of bigeminy. Nonspecific ST abnormality Abnormal ECG When compared with ECG of 03-JAN-2019 16:35, Questionable change in QRS axis Confirmed by Jennifer GALLEGOS, Nakul ([id number]) on 09/21/2019 5:58:05 PM
[2019-09-21 18:10] LABS: BASO# 0.03 X1000 (0.0-0.2); BASO% 0.4 % (0.0-0.8); EOS# 0.12 X1000 (0.0-0.7); EOS% 1.6 % (0.0-10.0); HEMATOCRIT 40.9 % (37.0-47.0); HEMOGLOBIN 13.2 g/dL (12.0-16.0); LYMPH# 3.01 X1000 (1.2-3.4); LYMPH% 39.2 % (20.5-51.1); MCH 31.8 PG (27-31); MCHC 32.3 g/dL (33-37); MCV 98.6 FL (81-99); MONO# 0.68 X1000 (0.11-0.59); MONO% 8.9 % (1.7-9.3); MPV 11.5 FL (7.4-10.4); NEUT# 3.84 X1000 (1.4-6.5); NEUT% 49.9 % (42.2-75.2); PLT 188 X1000 (130-400); RBC 4.15 XMIL (4.2-5.4); RDW 13.7 % (11.5-14.5); WBC 7.68 X1000 (4.8-10.8)
[2019-09-21 18:15] LABS: INR 1.35; PROTIME 16.9 Seconds (11.0-16.0)
[2019-09-21 18:16] LABS: PTT 33.3 Seconds (22.3-41.8)
[2019-09-21 18:26] LABS: HEMOGLOBIN A1C 5.6 % (4.8-6.0)
[2019-09-21 18:33] LABS: ALBUMIN 3.8 g/dL (3.5-5.0); CALCIUM 9.2 mg/dL (8.8-10.2); CREATININE 0.9 mg/dL (0.5-0.9)
[2019-09-21 21:53] LABS: URINE SOURCE CLEAN CATCH
[2019-09-21 21:59] LABS: BILIRUBIN URINE NEGATIVE (NEGATIVE); BLOOD URINE SMALL (NEGATIVE); COLOR YELLOW; GLUCOSE URINE NEGATIVE (NEGATIVE); KETONE URINE NEGATIVE (NEGATIVE); LEUKOCYTES URINE LARGE (NEGATIVE); NITRITE URINE NEGATIVE (NEGATIVE); PH URINE 5.5; PROTEIN URINE TRACE mg/dL (NEGATIVE); SP GRAVITY URINE 1.025; TURBIDITY URINE CLEAR (CLEAR); UROBILINOGEN URINE NORMAL (NORMAL)
[2019-09-21 22:00] LABS: UR EPITHELIAL CELLS <10 /HPF (<10); URINE BACTERIA 3+ /HPF; URINE RBC <10 /HPF (<10); URINE WBC TNTC /HPF (<10)
[2019-09-30] MEDS ORDERED: DURAMORPH ONE (07:13)
[2019-09-30] MEDS ORDERED: MARCAINE 0.25% PF ONE (07:13)
[2019-09-30] MEDS ORDERED: TORADOL ONE (07:13)
[2019-09-30] MEDS ORDERED: SODIUM CHLORIDE 0.9% ONE (07:14)
[2019-09-30] MEDS ORDERED: CYKLOKAPRON 1,000 MG/NS 1,000 MG/100 ML IVPB ONE (07:14)
[2019-09-30] MEDS ORDERED: EXPAREL 1.3% ONE (07:14)
[2019-09-30] MEDS ORDERED: REGLAN ONE (07:16)
[2019-09-30] MEDS ORDERED: LYRICA ONE (07:16)
[2019-09-30] MEDS ORDERED: COLACE ONE (07:16)
[2019-09-30] MEDS ORDERED: PEPCID ONE (07:16)
[2019-09-30] MEDS ORDERED: CELEBREX ONE (07:17)
[2019-09-30] MEDS ORDERED: KEFZOL 1 GM/D5W 1 GM/50 ML IVPB ONE (07:17)
[2019-09-30] MEDS ORDERED: LR 1,000 ML ONE (07:17)
[2019-09-30] MEDS ORDERED: COREG ONE (07:32)
[2019-09-30] MEDS ORDERED: DIPRIVAN 1% ONE (07:46)
[2019-09-30] MEDS ORDERED: FENTANYL ONE (07:47)
[2019-09-30] MEDS ORDERED: NORCURON ONE (07:48)
[2019-09-30] MEDS ORDERED: ZOFRAN ONE (07:48)
[2019-09-30] MEDS ORDERED: SODIUM CHLORIDE 0.9% 10 ML ONE ×2 (07:48→07:52)
[2019-09-30] MEDS ORDERED: QUELICIN (DOSE) ONE (07:48)
[2019-09-30] MEDS ORDERED: XYLOCAINE-MPF 2% ONE (07:48)
[2019-09-30] MEDS ORDERED: EPHEDRINE ONE (07:52)
[2019-09-30] MEDS ORDERED: OFIRMEV 1000 MG/ISOTONIC SOLN 1,000 MG/100 ML BOTTLE ONE (10:15)
[2019-09-30] MEDS ORDERED: ROBINUL ONE (10:19)
[2019-09-30 11:12] LABS: URINE SOURCE CATH
[2019-09-30 11:20] LABS: BILIRUBIN URINE NEGATIVE (NEGATIVE); BLOOD URINE TRACE (NEGATIVE); COLOR YELLOW; GLUCOSE URINE NEGATIVE (NEGATIVE); KETONE URINE NEGATIVE (NEGATIVE); LEUKOCYTES URINE NEGATIVE (NEGATIVE); NITRITE URINE NEGATIVE (NEGATIVE); PH URINE 5.5; PROTEIN URINE NEGATIVE (NEGATIVE); SP GRAVITY URINE 1.012; TURBIDITY URINE CLEAR (CLEAR); UROBILINOGEN URINE NORMAL (NORMAL)
[2019-09-30 11:22] LABS: UR EPITHELIAL CELLS <10 /HPF (<10); URINE BACTERIA NEGATIVE /HPF; URINE RBC <10 /HPF (<10); URINE WBC <10 /HPF (<10)
[2019-09-30] MEDS ORDERED: DECADRON ONE (11:43)
[2019-09-30] MEDS ORDERED: VANCOMYCIN 1 GM/NS 1 GM/250 ML IVPB IV ONE (12:30)
[2019-09-30] MEDS ORDERED: ZOFRAN PO PRN (12:30)
[2019-09-30] MEDS ORDERED: ZOFRAN IV PRN (12:30)
[2019-09-30] MEDS ORDERED: OXY IR PO PRN ×2 (12:30)
[2019-09-30] MEDS ORDERED: MORPHINE IV PRN (12:30)
[2019-09-30] MEDS ORDERED: MILK OF MAGNESIA PO PRN (12:30)
[2019-09-30] MEDS ORDERED: KEFZOL 2 GM/D5W 2 GM/50 ML IVPB IV SCH (12:30)
[2019-09-30] MEDS: OXY IR ONE ×2 (13:14→21:48)
--- NOTE | 2019-09-30 13:31 | Diag Imaging Result Doc PS360 ---
EXAM: XRAY HIP UNILATERAL LT - 09/30/2019 HISTORY: Post Op TECHNIQUE: Portable left hip two views COMPARISON: None. FINDINGS: There are postsurgical changes of recent total hip prosthesis placement. Alignment appears to be satisfactory. There are no complications identified. IMPRESSION: Satisfactory postoperative exam. Electronically signed by Neto Oglesby 09/30/2019 1:29 PM
[2019-09-30] MEDS: MYLICON PO ONE ×2 (13:56→21:48)
[2019-09-30] MEDS ORDERED: NS 1,000 ML IV SCH (14:30)
[2019-09-30] MEDS ORDERED: CYKLOKAPRON 1,000 MG in NS 100 ML IV ONE (15:40)
[2019-09-30] MEDS: TYLENOL PO SCH ×2 (18:04→21:49)
[2019-09-30] MEDS: ULTRAM PO SCH ×2 (18:04→21:49)
[2019-09-30] MEDS: KEFZOL 1 GM/D5W 1 GM/50 ML IVPB IV SCH (18:05)
--- NOTE | 2019-09-30 20:02 | CONSULTATION ---
DATE OF CONSULTATION: 09/30/2019 REQUESTING PHYSICIAN: Dr. Anish Birmingham. REASON FOR CONSULT: Medical management of underlying coronary artery disease, anticoagulation and hyperlipidemia. HISTORY OF PRESENT ILLNESS: An 84-year-old white female with a complicated past medical history presents in consultation for above-mentioned symptoms. The patient presented to Dr. Birmingham this morning for elective left total hip arthroplasty. The patient tolerated this procedure well. Postoperative course thus far has been complicated only by some intermittent pain. The patient's medical history is extensive and complicated. She has a history of coronary artery disease status post stenting to an unknown vessel in June 2018. 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 She is status post chemotherapy and radiation. Additionally, she was diagnosed with an extensive deep venous thrombosis in March 2019. At present time, patient denies fevers, chills, nausea, vomiting, shortness of breath, chest discomfort, palpitations, hematochezia, melena, dysuria, hematuria, or pyuria. PAST MEDICAL HISTORY: 1. Hypertension. 2. Coronary artery disease status post angioplasty and stenting of an unknown vessel in June 2018. 3. Type 2 diabetes, dietary controlled. 4. Mixed hyperlipidemia. 5. Squamous cell carcinoma of the rectum diagnosed in December 2018 status post chemotherapy and radiation. 6. 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 CURRENT MEDICATIONS: 1. Atorvastatin 20 mg daily. 2. Carvedilol 6.25 mg twice daily. 3. Xarelto 20 mg daily with supper. 4. Ambien 10 mg at bedtime as needed. ALLERGIES: Patient states she is allergic to Demerol and morphine. SOCIAL HISTORY: Patient is a retired medical insurance marketing specialist. She previously smoked 1 pack per day for 30 years. She stopped in 1987. She occasionally uses alcohol. She denies illicit drug use. FAMILY HISTORY: Patient's mother passed at age 70 secondary to complications of coronary artery disease. Patient's father passed at age 70 secondary to an unknown cause. REVIEW OF SYSTEMS: A 12 point review of systems was performed. Pertinent positives and negatives are noted in history present illness. PHYSICAL EXAMINATION: Vital Signs: Temperature 97.7 degrees, heart rate 64, respirations 16, blood pressure is 169/74. General: Well nourished, well developed, no acute distress. HEENT: Normocephalic, atraumatic. Pupils equal, round, reactive to light. Extraocular muscles intact. Sclerae anicteric. [place] conjunctivae. Oral and nasopharynx clear without exudate. Neck: Supple. No lymphadenopathy. No thyromegaly. No bruits auscultated. Cardiovascular: Regular rate and rhythm. No significant murmurs, rubs, or gallops. Pulmonary: Clear to auscultation bilaterally. Abdomen: Soft, nontender, nondistended. Positive bowel sounds. Extremities: No significant clubbing, cyanosis, or edema. The patient's bilateral lower extremities are splinted. Dermatologic: Evaluation reveals no evidence of rash. Neurologic: Cranial nerves 2-12 grossly intact. Motor and sensory grossly intact. Psychologic: Appropriate. LABORATORY DATA: None. ASSESSMENT AND PLAN: An 84-year-old white female with a very complicated past medical history presents in consultation for medical management in the postoperative left total hip arthroplasty stage. The patient denies significant symptoms at present time. We will manage each of her conditions as described below. 1. Thank you for this consultation. 2. Osteoarthritis of the left hip-as above, patient is status post left total hip arthroplasty. Pain is currently managed. Postoperative recommendations and physical therapy will be per Dr. Birmingham's discretion. 3. Coronary artery disease-patient has an extensive recent history. She is currently treated with optimized medical and nonmedical management. She is asymptomatic. We will continue atorvastatin and carvedilol therapy. 4. Anticoagulation secondary to history of an extensive deep venous thrombosis-patient has been anticoagulated for greater than 6 months. With the extent of her deep venous thrombosis, I suspect the patient will continue Xarelto indefinitely. We will resume therapy tomorrow evening. We will monitor this closely. She is at an increased risk for deep venous thrombosis as she does have a history. 5. Hyperlipidemia-we will continue patient on atorvastatin therapy. 6. History of squamous cell carcinoma of the anus-as above, patient is status post chemotherapy and radiation. We will remain aware. 7. Hypertension-this is historical. Blood pressure today is elevated, likely reactive from pain. If this remains elevated throughout hospitalization, we will consider adding medications. 8. Dietary controlled type 2 diabetes-patient's glucose in the preoperative phase was 146. We will follow patient with serial blood sugars. We will start sliding scale insulin as necessary. 9. Fluid, electrolytes, nutrition. We will monitor electrolytes. Normal saline at 75 mL an hour. Cardiac prudent and diabetic diet. 10. Prophylaxis. Patient will resume Xarelto tomorrow. cc: Adrian Moore MD
[2019-09-30] MEDS: LYRICA PO SCH (21:47)
[2019-09-30] MEDS: PERIDEX MT SCH (21:47)
[2019-09-30] MEDS: CELEBREX PO SCH (21:47)
[2019-09-30] MEDS: HUMALOG SUBQ SCH (21:47)
[2019-09-30] MEDS: COLACE PO SCH (21:47)
[2019-09-30] MEDS: COREG PO SCH (21:53)
--- NOTE | 2019-09-30 23:46 | ORTHOPAEDICS PROGRESS NOTE ---
DATE: 09/30/2019 SUBJECTIVE: No acute events during the day. The patient is doing well status post total hip replacement. She denies any nausea or vomiting. She has been tolerating clear liquids thus far. She has not ambulated with therapy as of yet. She reports pain is well-controlled. OBJECTIVE: Afebrile, vital signs stable. Extremities: Examination of the left lower extremity shows surgical dressing to be clean, dry, and intact. Thigh and calf are soft and compressible. She has minimal pain with log roll of the hip. Motor is intact to EHL, tibialis anterior, gastrocsoleus complex. Sensation intact to light touch at L3-S1. Dorsalis pedis pulse are palpable and equal bilaterally. IMAGING: AP and lateral views of the left hip were reviewed postoperatively, demonstrating good position of implants and reduction of hip joint. ASSESSMENT: This is an 84-year-old female status post left total hip arthroplasty. PLAN: 1. The patient is to be toe-touch weightbearing on the left lower extremity. Physical therapy to mobilize with a rolling walker. 2. Xarelto for DVT prophylaxis, restart tomorrow. 3. Twenty four hours of Ancef for antibiotic prophylaxis. 4. Ice left lower extremity as needed for pain. 5. Appreciate hospitalist's recommendations. 6. Disposition: The patient is planning on being discharged to inpatient rehab facility when a bed is available. Case Management and Social Work consult have been placed to help with these arrangements.
[2019-10-01] MEDS: ULTRAM PO SCH (02:49)
[2019-10-01] MEDS: TYLENOL PO SCH ×4 (02:49→22:28)
[2019-10-01] MEDS: KEFZOL 1 GM/D5W 1 GM/50 ML IVPB IV SCH (02:50)
[2019-10-01] MEDS: HUMALOG SUBQ SCH ×4 (06:56→22:28)
[2019-10-01 07:15] LABS: HEMATOCRIT 31.3 % (37.0-47.0); HEMOGLOBIN 10.3 g/dL (12.0-16.0)
[2019-10-01 07:44] LABS: CALCIUM 8.4 mg/dL (8.8-10.2); CREATININE 0.9 mg/dL (0.5-0.9); POTASSIUM 4.5 mmol/L (3.5-5.1)
[2019-10-01] MEDS ORDERED: MYLICON PO PRN (08:24)
[2019-10-01] MEDS ORDERED: XARELTO PO SCH (09:00)
[2019-10-01] MEDS: LYRICA PO SCH ×2 (11:33→22:30)
[2019-10-01] MEDS: CELEBREX PO SCH ×2 (11:33→22:27)
[2019-10-01] MEDS: PEPCID PO SCH (11:33)
[2019-10-01] MEDS: XARELTO PO SCH (11:33)
[2019-10-01] MEDS: LIPITOR PO SCH (11:34)
[2019-10-01] MEDS: COLACE PO SCH ×2 (11:34→22:28)
[2019-10-01] MEDS: COREG PO SCH ×2 (11:34→22:27)
[2019-10-01] MEDS: PERIDEX MT SCH ×2 (11:38→22:28)
[2019-10-01] MEDS: ULTRAM PO PRN ×2 (11:46→18:18)
--- NOTE | 2019-10-01 14:07 | ORTHOPAEDICS PROGRESS NOTE ---
DATE: 10/01/2019 SUBJECTIVE: No acute events overnight. Pain is well controlled. Patient is doing well. She is tolerating a diet. She has not yet worked with physical therapy. Hematocrit is 31. OBJECTIVE: Vital Signs: Afebrile. Vital signs are stable. Lower Extremities: Examination of left lower extremity shows surgical incision dressing to be clean, dry and intact. Thigh and calf are soft and compressible. Motor is intact quadriceps, hamstrings, EHL, tibialis anterior, gastrocsoleus complex. Sensation intact to light touch L3-S1. Dorsalis pedis pulse palpable and equal bilaterally. IMAGING: AP and lateral of the left hip postoperatively demonstrate good position of hardware and hip was reduced. ASSESSMENT: This is an 84-year-old female status post left total hip arthroplasty. Postoperative day 1. PLAN: 1. Patient is to be partial weightbearing on left lower extremity. Physical therapy to mobilize with rolling walker. She did have a small perforation of the femur intraoperatively, so we will protect her weight bearing for the first couple weeks. 2. Xarelto DVT prophylaxis. 3. Ice to left lower extremity as needed for pain. 4. Will discontinue W[place]ster catheter tomorrow. 5. Appreciate hospitalist's recommendations. Dr. Bass saw her today. 6. Disposition: The patient is willing to get an inpatient rehab facility upon discharge, as she lives alone. Will talk with senior case manager about getting this set up. [facility]
--- NOTE | 2019-10-01 18:28 | OPERATIVE NOTE ---
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 PROCEDURE: Left total hip arthroplasty done through a direct anterior approach. SURGEON: Anish Birmingham MD. EVS MANAGER: Nba Pedro, whose assistance was needed for retraction, placement of implants, and to increase speed and efficiency in the OR. ANESTHESIA: General endotracheal anesthesia. COMPLICATIONS: None. SPECIMENS: None. DRAINS: None. BLOOD LOSS: 300 mL. IMPLANTS: Biomet G7 acetabular 48 mm cup with a 32 mm acetabular neutral liner, a 32 mm +6 cobalt chromium head, and a size 12 standard offset Taperloc complete femoral stem with two 35 mm acetabular screws. INDICATIONS FOR PROCEDURE: Ms. Carbone is an 84-year-old lady who has had complaint of left hip pain and arthritis over the last couple of years. It has progressively gotten worse. She went on to have some avascular necrosis of the femoral head. She is wanting to undergo surgery for the last 18 months, however, does have significant medical history during that time when she was diagnosed with anal cancer and had a myocardial infarction. She has since been cleared by oncologist, as well as hogshead head matcher and primary care doctor, and wished to proceed with surgery. The risks, benefits, alternative therapies were discussed with patient regarding surgery. Risks of surgery include, but are not limited to, risk of bleeding, infection, damage to nerves and vessels around the area, dislocation, intraoperative fracture, need for revision surgery, continued pain after surgery. There is also risk of anesthesia including blood clot, stroke, heart attack, even . Patient understands these risks. All questions were answered. Informed consent was obtained. PROCEDURE IN DETAIL: Ms. Carbone was identified by wristband and greeted in preoperative holding area on 09/30/2019. Her left lower extremity which was the operative site was marked with indelible ink per [facility] Sign Your Site protocol. Following this, the patient was transferred back to the operating room for surgery. Upon entering the OR, general endotracheal anesthesia was induced on the bed. She was then transferred in supine position over to the Temple table. All bony prominences were well padded. Bilateral feet were placed in the well-padded boot holders and attached to the table. At this time, the left lower extremity was then prepped and draped in routine sterile fashion. Formal time-out was performed confirming correct patient, procedure, operative site, operative side, administration of preoperative antibiotics. Everyone was in agreement. Patient received 2 g of Ancef prior to incision. A 10-blade knife was used to make a longitudinal incision 2 cm distal and 3 cm lateral to the ASIS for a direct anterior approach. Knife was used to dissect through skin. Bovie cautery was then used to obtain hemostasis and dissect through subcutaneous fat down to tensor fascia. Knife was then used to make a slit in the tensor fascia, followed by curved Saldaña to extend this longitudinally along the line of the skin incision. At this time, anterior flap of tensor fascia was then elevated off the muscle belly until we fell into the interval between sartorius and tensor fascia. A blunt Cobra was then placed in the saddle of the superior neck. Fingers were then used to spread the deep fascia between tensor and rectus. A hemostat was used to bluntly spread through this fat to find the ascending circumflex vessels which were found and cauterized with Bovie cautery. Once this was done, Bovie was then used to further develop this interval. An additional blunt Cobra was placed along the inferior neck. At this time, a 90-degree Hohmann was then placed under the rectus, up onto the anterior lip of the acetabulum. Brink elevator was then used to clean off the capsule. At this time, we had excellent visualization of the capsule and Bovie cautery was used to make a T capsulotomy in routine fashion. A #1 Vicryl suture was then used to tag each limb of the capsulotomy. The retractors were then replaced along the superior and inferior necks, intracapsular. The hip was then slightly externally rotated to allow release of the anterior capsule for palpation and visualization of the lesser trochanter. Once this was done, a rongeur was then used to remove osteophytes from the femoral neck. Sagittal saw was then used to make our napkin ring neck cut in routine fashion. A Tramaine was used to remove the napkin ring portion, followed by a corkscrew to remove the head. Head was then visualized on back table and appeared to have significant arthritis with full-thickness cartilage wearing and collapse of the superior portion of the head. At this time, 2 turns of traction were placed on the leg and it was externally rotated in order to get the femur out of the way. We then proceeded with preparation of the acetabulum. Our sharp Hohmann was placed along the anterior-superior lip of the acetabulum, followed by a sharp cobra along the posterior wall of the acetabulum, and a blunt Cobra along the anterior-inferior aspect of the acetabulum. A long-handled knife was used to excise the labrum. Bovie cautery was then used to excise remaining ligamentum from the cotyloid fossa. Once this was done, we then proceeded with reaming of the acetabulum, starting with a 44 mm reamer. This reamer was used to medialize to the medial wall of the acetabulum. Once this was done, we then sequentially reamed up under fluoroscopy guidance up to a 48 mm liner. We were unable to go any bigger than this given her natural anatomy. At this time, a 48 mm G7 acetabular cup was then opened and assembled on the back table. We then impacted it in position. It had minimal press-fit and so we placed 2 screws in the posterior superior quadrant in routine fashion using the drill bit measuring device. Both screws were found to measure 35 mm. Both screws had excellent purchase and we were satisfied with fixation of the cup after placement of the screws. A manhole cover was then placed in the central hole. Again, fluoroscopy was brought in to get a perfect AP of the pelvis to look at our cup position, which we were satisfied with. At this time, a 32 mm neutral liner was then opened and impacted in position. We then began preparation of our femur. Bovie cautery was used to begin elevating capsule from the medial aspect of the greater trochanter starting on the anterior edge working posteriorly on the trochanter. Once this capsule was released along to the posterior aspect of the femoral neck and piriformis fossa, we then placed a two-prong retractor over the greater trochanter. A bone hook was then used to grab the canal around the medial calcar. At this time, traction was released. The leg was extended and abducted while pulling the femur into the wound. We felt to have good exposure of the femur at this point. Next, a canal finder was placed followed by a rat-tail. We then began with sequential broaching. We started with a size 4 broach and began to work up. As we continued broaching, I noticed failure of the implants to be getting good purchase. Given this finding, fluoroscopy was brought in demonstrating the tip of the stem of the broach had perforated the lateral cortex about 2 cm distal to the lesser trochanter. Given these findings, broach was removed and the femoral canal was assessed. There did not appear to be any propagation of the fracture, just a visible hole in that lateral cortex. Given this finding, we converted from the Taperloc Microplasty stem to the Taperloc Complete. The canal finder was again inserted, hugging the medial calcar down into the canal. We then began sequential broaching with the Taperloc Complete broaches. We were found to have excellent fit with a size 12 broach. Calcar planer was then used to plane our femoral neck, followed by placement of a standard neck and a +0 ball. The hip was found to be stable with this construct, however, it was a little bit short, and we thus placed a 6 mm trial ball which was found to have excellent stability in all planes as well as restore leg length. At this time, we then dislocated the hip, removed our trial stem, head, and neck. The wound was then copiously irrigated with Pulsavac irrigation. We then prepared to place a cable up around the lesser trochanter in order to prevent propagation of this perforation of the lateral cortex. Cable passers were then used to pass a cable taking care to stay on bone while passing around the posterior aspect of the femur up to the medial calcar. A Synthes cable was then placed in routine fashion. Prior to tightening the cable, we then implanted a size 12 Taperloc Complete standard offset stem. Once the stem was seated and found to have excellent fixation, we then tightened this cable to 50 adams and cut the end of it in routine fashion. Once this was done, a 32 mm +6 neck implant was opened and impacted in position. The hip was then reduced and again taken through range of motion, and was found to be stable in all planes. Fluoroscopy was again brought in taking a perfect AP of the pelvis confirming leg length and offset, which we were satisfied with. AP and lateral views of the femur and stem were also closely examined, demonstrating no sign of the fracture propagation proximal or distal to the area of perforation on the lateral cortex. At this time, a 0.35% solution of Betadine was then poured into the wound and allowed to sit for 3 minutes. Following the 3-minute marker, the wound was copiously irrigated with normal saline. Our deep Exparel cocktail was then injected around the posterior capsule, anterior capsule, anterior lip of the acetabulum, rectus, vastus lateralis, and tensor fascia masoud. Our skin Exparel injection was then injected subcutaneously. Following this, we then began with closure of our capsule using #1 Vicryl sutures. An 0 Vicryl running locking suture was then used for closure of her tensor fascia, followed by 2-0 Vicryl sutures for subcutaneous tissue closure, and 3-0 nylons in horizontal mattress fashion for skin closure. At this time, the wound was then dressed with Silverlon dressing with silver impregnation. The patient was then extubated, transferred to hospital stretcher, and taken to Recovery in stable condition. There were no acute complications during the procedure. All sponge and sharp counts were correct at conclusion of procedure.
[2019-10-02] MEDS: TYLENOL PO SCH ×4 (06:31→21:24)
[2019-10-02 07:02] LABS: HEMATOCRIT 27.4 % (37.0-47.0); HEMOGLOBIN 8.8 g/dL (12.0-16.0)
[2019-10-02] MEDS: HUMALOG SUBQ SCH ×4 (09:04→21:24)
[2019-10-02] MEDS: PEPCID PO SCH (09:05)
[2019-10-02] MEDS: LIPITOR PO SCH (09:05)
[2019-10-02] MEDS: XARELTO PO SCH (09:05)
[2019-10-02] MEDS: ULTRAM PO PRN (09:06)
[2019-10-02] MEDS: LYRICA PO SCH ×2 (09:06→21:24)
[2019-10-02] MEDS: CELEBREX PO SCH ×2 (09:06→21:24)
[2019-10-02] MEDS: COLACE PO SCH ×2 (09:06→21:23)
[2019-10-02] MEDS: COREG PO SCH (09:06)
[2019-10-02] MEDS: PERIDEX MT SCH ×2 (09:07→21:23)
[2019-10-02 10:30] LABS: IRON SATURATION 14 %; TIBC 134 ug/dL; TOTAL IRON 19 ug/dL (49-151); UNBOUND IRON 115 ug/dL (112-346)
--- NOTE | 2019-10-02 10:44 | PROGRESS NOTE ---
DATE: 10/02/2019 SUBJECTIVE: The patient is sitting up in the bed. She is kind of wedged in between the bed and the wall, and I really could not get to her for an exam. She stated she is having no difficulty. She has a little bit of throat irritation since the surgery and difficulty swallowing, but nothing critical. She states that her pain is reasonably well controlled. OBJECTIVE: Vital Signs: 97.7, 64, 20, 94/40, 96% saturated on room air. PHYSICAL EXAMINATION: The patient appears to be neurologically intact. Psychologically, she is alert, oriented, conversive and appropriate. LABORATORY: Hemoglobin 8.8, hematocrit 27.4. ASSESSMENT AND PLAN: 1. Postoperatively, the patient continues to show signs of declining hemoglobin and hematocrit. We will make sure that we have a type and screen on board and recheck that in the morning. She is on blood thinner for history of deep venous thrombosis and that may need to be discontinued and other means incorporated for deep venous thrombosis prophylaxis. 2. The patient's blood pressure is low. This may be due to anemia in combination with pain medications and her usual hypertensive medication just seems to be too much. I am going to hold her blood pressure medication today and monitor those blood pressure readings and pulse rate. 3. The patient's blood sugar has been reasonable and no adjustments need to be made in that regard. We will continue sliding scale. cc: Stevan Turner MD
--- NOTE | 2019-10-02 11:43 | ORTHOPAEDICS PROGRESS NOTE ---
DATE: 10/02/2019 SUBJECTIVE: No acute events overnight. The patient stood up and ambulated around the room with Physical Therapy yesterday. She was touchdown weightbearing yesterday, which she states she had a hard time doing. She reports some pain in the lateral and posterior aspect of the hip. However, it is fairly controlled with medication. She has been restarted on her Xarelto. She denies any signs of orthostatic hypotension. She is tolerating a diet. OBJECTIVE: Hematocrit is 27. Blood pressure is running a little low with systolic in the 90s. However, she was getting her blood pressure medication. Her heart rate has been normal, around the 60s. Extremity examination: The left lower extremity shows surgical dressing to be clean, dry, and intact. Thigh is soft and compressible. No large fluctuance around the surgical incision. Calf is soft and compressible. Motor is intact to quadriceps, hamstrings, EHL, tibialis anterior, gastrocsoleus complex. Sensation is intact to light touch at L3-S1. Dorsalis pedis pulse is palpable. ASSESSMENT: An 84-year-old female status post left total hip arthroplasty. PLAN: 1. The patient did have a small perforation in her femoral cortex during surgery. However, this was spanned and a cable was placed. I feel that it should be stable enough to weight bear as tolerated. I changed the physical therapy order to try weightbearing as tolerated as I think the benefits of doing this will help her significantly with mobilization and her recovery. 2. Xarelto for DVT prophylaxis. 3. Appreciate hospitalist recommendations. 4. Acute blood loss anemia. The patient is asymptomatic at this time. Will continue to monitor hematocrit. 5. Ice to the left hip as needed for pain. 6. Disposition. Case Management was consulted. The patient currently lives at home and would benefit from inpatient rehab upon discharge. Will work on getting this set up and hopefully getting her discharged tomorrow, if possible.
[2019-10-03] MEDS: TYLENOL PO SCH ×3 (03:13→15:46)
[2019-10-03] MEDS: ULTRAM PO PRN ×2 (06:32→12:59)
[2019-10-03 06:39] LABS: HEMATOCRIT 28.3 % (37.0-47.0); HEMOGLOBIN 9.3 g/dL (12.0-16.0)
--- NOTE | 2019-10-03 08:10 | ORTHOPAEDICS PROGRESS NOTE ---
DATE: 10/03/2019 SUBJECTIVE: No acute events overnight. Patient reports some aching pain in her left hip, but otherwise doing okay. She has been tolerating a diet. She states her throat is feeling a little better this morning. She has been able to get up to the bedside commode with assistance from the nurse. Physical therapy did not work with her yesterday. OBJECTIVE: Vital Signs: Hematocrit is 28 and stable from yesterday. Afebrile. Vital signs are stable. Extremity examination: Left lower extremity shows surgical dressing to be clean, dry, intact. Thigh and calf are soft and compressible. She has mild pain over the lateral aspect of her hip with palpation. Nontender in her knee. She has no pain with log roll of the hip. Neurovascularly intact. ASSESSMENT: This is an 84-year-old female status post left total hip arthroplasty, postoperative day 3. PLAN: 1. The patient can be weightbearing as tolerated with physical therapy today. Therapy to work on mobilization. 2. Ice to the left lower extremity as needed for pain. 3. Proceed with hospitalist's recommendations. 4. Xarelto for DVT prophylaxis. 5. Disposition: social work manager and social contact worker have been consulted. The patient wishes and I think it is appropriate for her to be transferred to inpatient rehab facility. She lives alone and is going to need some help in the initial postoperative period. I will plan on seeing her back in clinic in 2 weeks for her postop wound check and to remove sutures.
[2019-10-03] MEDS ORDERED: VITAMIN C PO SCH (09:00)
[2019-10-03] MEDS ORDERED: FERGON PO SCH (09:00)
--- NOTE | 2019-10-03 09:42 | Diag Imaging Result Doc PS360 ---
EXAM: CHEST-1 VIEW 10/03/2019 HISTORY: REHAB TECHNIQUE: AP portable at 0924 COMMENT: There is a Port-A-Cath on the right with its tip in the superior vena cava just above the right atrium. There is some ill-defined opacity partially silhouetting the lateral left hemidiaphragm. This was also the case on 01/03/2019 and is presumably due to fibrosis. Otherwise are has been no significant change. IMPRESSION: Stable chest. Electronically signed by Michael Arellano 10/03/2019 9:40 AM
[2019-10-03] MEDS: CELEBREX PO SCH (13:00)
[2019-10-03] MEDS: LIPITOR PO SCH (13:00)
[2019-10-03] MEDS: LYRICA PO SCH (13:01)
[2019-10-03] MEDS: PEPCID PO SCH (13:01)
[2019-10-03] MEDS: XARELTO PO SCH ×2 (14:17→16:54)
--- NOTE | 2019-10-03 14:21 | DISCHARGE SUMMARY ---
ADMISSION DATE: 09/30/2019 DISCHARGE DATE: 10/03/2019 PROCEDURE : Left total hip anterior arthroplasty on 09/30/2019. FINAL DIAGNOSES: 1. Severe osteoarthritis of the left hip. 2. Coronary artery disease, status post angioplasty and stenting in June 2018. 3. Type 2 diabetes mellitus, diet controlled. 4. Mixed hyperlipidemia. 5. Squamous cell carcinoma of the rectum, status post chemotherapy and radiation, apparently cured. 6. Bilateral deep venous thrombosis with chronic anticoagulation. PRESENT ILLNESS: Mrs. Carbone is an 84-year old woman who lives alone and has been followed by her orthopedist for several years for progressive left hip pain. Her planned surgery was postponed due to an acute coronary syndrome in June 2018. She then had rectal carcinoma diagnosed in December of 2018 and underwent extensive chemotherapy and radiation therapy for this. She is finally healthy enough that Dr. Birmingham felt comfortable admitting her for elective left total hip replacement. PHYSICAL EXAMINATION: Normal vital signs. She is generally well nourished and well developed. Neck was supple with no adenopathy. Lungs were clear. Cardiac exam: Regular rate and rhythm. No murmurs. Abdomen: Soft and nontender. Extremities: No edema. Mental status is normal. LABORATORY DATA: Baseline laboratory was unremarkable. HOSPITAL COURSE: She was taken to the operating room on the day of admission and underwent uneventful left hip total arthroplasty via an anterior approach. There was some minor fracturing of the lateral portion of the femoral cortex. A Taperloc complete femoral stem with two 35 mm acetabular screws were installed. She initially was touch down weightbearing but found this difficult and was advanced to weightbearing as tolerated without difficulty. Discharge hemoglobin and hematocrit were 9.3 and 28.3% respectively. Her blood sugars remained well controlled throughout this hospitalization without insulin or other therapy. Due to the fact that she lives alone, it was felt that she would benefit from subacute rehab and a bed was available today at [facility]. She was discharged in stable condition. DISCHARGE MEDICATIONS: Acetaminophen 500 mg two tablets every six hours p.r.n. for pain, ascorbic acid 500 mg daily, Fergon 240 mg daily with vitamin C, atorvastatin 20 mg daily, carvedilol 6.25 mg twice a day, celecoxib 200 mg b.i.d. for seven days then discontinue, famotidine 20 mg daily before supper, milk of magnesia 30 mL daily p.r.n. for constipation, Zofran 4 mg p.o. every six hours p.r.n. for nausea and vomiting, tramadol 50 mg tablets, one or two tablets every six hours p.r.n. for pain, oxycodone 5 mg tablets one or two every three hours p.r.n. for severe pain, Xarelto 20 mg daily, Mylicon 80 mg tablets four times a day as needed for gas pain. cc: MD Anish Birceño MD MTDD
[2019-10-03] MEDS ORDERED: MELATONIN PO PRN (14:25)
[2019-10-03] MEDS ORDERED: MIRALAX PO PRN (14:25)
[2019-10-03] MEDS ORDERED: METAMUCIL POWDER PACKET PO SCH (14:30)
[2019-10-03 16:09] VITALS: BP 117/43
[2019-10-03] MEDS ORDERED: CITRATE OF MAGNESIA PO ONE (16:23)
[2019-10-03] MEDS ORDERED: DULCOLAX PR ONE (16:23)
== END 2019-10-03 18:49 ==
LOC: SURHOLD 00:39 → 4N 13:59
PROVIDERS: ADMIT Orthopaedic Surgery Sports Medicine; ATTEND Orthopaedic Surgery Sports Medicine